=== PATIENT | female | born 1950 | race Caucasian/White ===

== ENCOUNTER 2023-05-25 08:55 | Outpatient (OUT) | payer MEDICARE, SELFPAY ==
--- NOTE | 2023-05-25 08:58 | XR_ITS ---
[address] [address] Patient Name: BECKY WALTER MRN: [id number] date: 1950 Sex: F Assigned [facility] Current Patient Location: Accession/Order Number: [id number] Exam Date: 05/25/2023 09:18 Report Date: 05/30/2023 07:02 At the request of: DWAYNE LOPEZ Procedure: XR DEXA axial skeleton EXAMINATION: XR DEXA axial skeleton, 05/25/2023 9:18 AM EDT HISTORY: Osteoporosis M81.0 COMPARISON: 2021, , , , TECHNIQUE: Dual-energy X-ray absorptiometry (DEXA) bone density study performed for the axial skeleton. HISTORY: Osteoporosis M81.0 FINDINGS: Bone mineral density AP spine L1-L4 measures 1.024 g/sq cm. T score -1.3. This is artifactually elevated secondary to degenerative spondylosis bone mineral density dual femur trochanters measuring 0.529 g/sq cm. 5.1% reduction, physiologic. T score -2.8. WHO classification: Osteoporosis XR/XR DEXA axial skeleton IMPRESSION: Osteoporosis. High fracture risk Electronically authenticated by: ED CEDENO Date: 05/30/2023 07:02
--- NOTE | 2023-05-25 08:58 | MM_ITS ---
Patient Name: BECKY WALTER MR#: [id number] : 1950 Exam Date: 05/25/2023 Ordering Doctor: DR Christy Rae M.D. RADIOLOGY REPORT PROCEDURE: MM TOMOSYNTHESIS SCREENING BI COMPARISON: MG MAMM SCREEN 3D TISH CAD, 03/30/2021. MG MAMM SCREEN 3D TISH CAD, 04/27/2022. INDICATIONS: Screening Calculator Name NCI Breast Cancer Risk Assessment Tool 5 Year Breast Cancer Risk 3.40% Lifetime Breast Cancer Risk 9.70% Personal Breast Cancer No Personal Ovarian Cancer No Treatments None Family Cancers Sister with breast cancer at age 55. LOCATION: [facility] BREAST COMPOSITION: The breasts are extremely dense, which lowers the sensitivity of mammography. FINDINGS: DIAGNOSTIC CATEGORY 1--NEGATIVE. NO CHANGE FROM COMPARISON ASSESSMENT. Scattered benign-appearing nodules are present. Scattered benign-appearing calcifications are present. Scattered benign-appearing lymph nodes are present. RIGHT BREAST: No significant suspicious finding. LEFT BREAST: No significant suspicious finding. RECOMMENDATIONS: ROUTINE MAMMOGRAM AND CLINICAL EVALUATION IN 12 MONTHS. PLEASE NOTE: A NORMAL MAMMOGRAM DOES NOT EXCLUDE THE POSSIBILITY OF BREAST CANCER. A CLINICALLY SUSPICIOUS PALPABLE LUMP SHOULD BE BIOPSIED. Dictated by: Vladimir Navas MD on 05/25/2023 at 09:44 Approved by: Vladimir Navas MD on 05/25/2023 at 09:45
[2023-05-25 11:05] LABS: Free T4 1.21 ng/dL (0.76-1.46)
[2023-05-25 11:15] LABS: Anion Gap 11.7; BUN Creatinine Ratio 16.2; Calcium 9.6 mg/dL (8.5-10.1); Carbon Dioxide 30.8 mmol/L (21.0-32.0); Chloride 101 mmol/L (98-107); Estimated GFR (African America >60 (>=60); Estimated GFR (Non-African Ame >60 (>=60); Glucose 70 mg/dL (74-106); Potassium 3.5 mmol/L (3.5-5.1); Sodium 140 mmol/L (136-145); Thyroid Stimulating Hormone 1.172 uIU/mL (0.358-3.740)
== END 2023-05-25 08:56 | disposition home or self-care (01) ==
LOC: MAMMO 08:55
PROVIDERS: PCP Family Medicine; Visit Provider Family Medicine
DX: E83.52 Hypercalcemia (principal); M81.0 Age-related osteoporosis without current pathological fracture; E03.9 Hypothyroidism, unspecified; Z12.31 Encounter for screening mammogram for malignant neoplasm of breast; Z80.3 Family history of malignant neoplasm of breast
CPT/HCPCS: 36415; 77063; 77067; 77080; 80048; 84439; 84443

== ENCOUNTER 2023-08-08 09:36 | Outpatient (OUT) | payer MEDICARE, SELFPAY ==
[2023-08-08 09:56] LABS: Basophils Absolute Auto 0.1 10^3/uL (0.0-0.1); Basophils Percent Auto 1.2 % (0.2-2.0); Eosinophils Absolute Auto 0.1 10^3/uL (0.0-0.7); Hematocrit 39.7 % (36.0-48.0); Hemoglobin 12.9 g/dL (12.0-16.0); Immature Granulocytes Abs Auto 0.01 10^3/uL (0.00-0.03); Immature Granulocytes Pct Auto 0.2 % (0.0-0.5); Lymphocytes Absolute Auto 1.5 10^3/uL (1.2-3.8); Lymphocytes Percent Auto 35.6 % (20.5-60.0); Mean Corpuscular HGB Conc 32.5 g/dL (29.9-35.2); Mean Corpuscular Hemoglobin 29.5 pg (26.7-34.0); Mean Corpuscular Volume 90.8 fL (81.0-99.0); Mean Platelet Volume 8.8 fL (9.5-13.5); Monocytes Absolute Auto 0.4 10^3/uL (0.3-0.8); Monocytes Percent Auto 8.8 % (1.7-12.0); Neutrophils Absolute Auto 2.2 10^3/uL (1.4-6.5); Neutrophils Percent Auto 51.2 % (43.0-75.0); Platelet Count 222 10^3/uL (150-450); Red Blood Count 4.37 10^6/uL (4.20-5.40); Red Cell Distribution Width 12.4 % (11.0-15.0); White Blood Count 4.3 10^3/uL (4.0-11.0)
[2023-08-09 13:08] LABS: PTH, Intact 33 pg/mL (15-65)
== END 2023-08-08 09:37 | disposition home or self-care (01) ==
LOC: LAB 09:37
PROVIDERS: PCP Family Medicine; Visit Provider Nurse Practitioner Family
DX: M81.0 Age-related osteoporosis without current pathological fracture (principal); E83.52 Hypercalcemia
CPT/HCPCS: 36415; 82306; 83970; 85025

== ENCOUNTER 2023-09-06 15:29 | Outpatient (OUT) | payer MEDICARE, SELFPAY ==
[2023-09-06 16:14] LABS: Calcium 9.5 mg/dL (8.5-10.1)
== END 2023-09-06 15:30 | disposition home or self-care (01) ==
LOC: LAB 15:32
PROVIDERS: PCP Family Medicine; Visit Provider Nurse Practitioner Family
DX: M81.0 Age-related osteoporosis without current pathological fracture (principal)
CPT/HCPCS: 36415; 82310

== ENCOUNTER 2023-09-30 07:29 | Outpatient (RCR) | payer MEDICARE, SELFPAY ==
[2023-09-30 13:17] VITALS: BP 108/71; PULSE 77; TEMP 36.6; O2SAT 98
[2023-09-30] MEDS: ROMOSOZUMAB-AQQG 210 MG/2.34 ML SYRINGE SQ (13:39)
--- NOTE | 2023-09-30 16:31 | PC.NURSE ---
1440 tolerated injection no s/s of reaction. educated on calcium and vit d requirements and medication,
== END 2023-10-08 23:59 | disposition home or self-care (01) ==
LOC: INF 07:29
PROVIDERS: PCP Family Medicine; Visit Provider Nurse Practitioner Family
DX: M81.0 Age-related osteoporosis without current pathological fracture (principal)
CPT/HCPCS: 96372; J3111

== ENCOUNTER 2023-11-03 07:43 | Outpatient (RCR) | payer MEDICARE, SELFPAY ==
[2023-11-03 13:05] VITALS: BP 113/61; PULSE 80; TEMP 36.7; O2SAT 98
[2023-11-03] MEDS: ROMOSOZUMAB-AQQG 210 MG/2.34 ML SYRINGE SQ (13:26)
--- NOTE | 2023-11-03 14:49 | PC.NURSE ---
1305: Pt. to [facility] amb. for monthly injection. Seated in recliner. VSS. Denies adverse reactions with previous Evenity administrations. Given bottled water. 1326: Medicated with Evenity as ordered, see documentation. No bleeding to sites x's 2 to left upper arm. Pt. tolerated without c/o. 1328: D/c'd amb. to home.
== END 2023-11-07 23:59 | disposition home or self-care (01) ==
LOC: INF 07:43
PROVIDERS: PCP Family Medicine; Visit Provider Nurse Practitioner Family
DX: M81.0 Age-related osteoporosis without current pathological fracture (principal)
CPT/HCPCS: 96372; J3111

== ENCOUNTER 2023-11-15 11:57 | Outpatient (OUT) | payer MEDICARE, SELFPAY ==
--- OUTSIDE RECORDS SUMMARY | 2023-11-15 12:09 | XMS_ITS | CCD ---
Author Organization [facility] Care Team Providers Care Ticketing Agent Name Role Phone Brandin Bah Unavailable Christy Lopez Unavailable BINDU MCQUEEN Admitting Unavailable BINDU MCQUEEN Attending Unavailable JOHN, DR CHRISTY Perla Primary Care Unavailable BINDU MCQUEEN Consulting Unavailable JOHN, DR CHRISTY Perla Admitting Unavailable JOHN, DR CHRISTY Perla Attending Unavailable JOHN, DR CHRISTY Perla Primary Care Unavailable MARCUS, DR EULALIO Graves Consulting Unavailable JOHN, DR CHRISTY Perla Consulting Unavailable BINDU MCQUEEN Admitting Unavailable BINDU MCQUEEN Attending Unavailable JOHN, DR CHRISTY Perla Primary Care Unavailable BINDU MCQUEEN Consulting Unavailable DESMOND Evans Attending Provider Ludy Evans Attending Unavailable Ludy Evans Admitting Unavailable NO FAMILY, PHYSICIAN Primary Care Unavailable Ludy Evans Unavailable Sapphire Ortez Unavailable [phone] Allergies Allergy Classification Reported Allergen(s) Allergy Type Date of Onset Reaction(s) Facility (10 sources) Seasonal allergy Propensity to adverse reactions 4 Unknown, Unknown Reaction [facility] (10 sources) Cat dander Propensity to adverse reactions 4 Unknown, Unknown Reaction [facility] (2 sources) Allergies Reconciled Propensity to adverse reactions Unknown [facility] Other (2 sources) patient allergy list reviewed by nurse or physicia Propensity to adverse reactions 6 Comment:Done [facility] Other Medications Current Medications Medication Drug Class(es) Dates Sig (Normalized) Sig (Original) azithromycin 250 mg oral tablet (8 sources) Macrolide Antimicrobial Start: 06-02-2023 Azithromycin Active 250 MG PO daily 6 5 June 02, 2023 12:00am Take 2 the first day and then 1 for the next 4 days Start: 03-16-2023 Azithromycin 2 50 MG 2 tablet on the first day, then 1 tablet daily for 4 days Orally Once a day for 5 day(s) Mar, Active Start: 03-25-2022 Azithromycin 2 50 MG as directed Orally 2 tabs po today, then 1 tab daily x 4 more days for 5 Mar, Not-Taking/PRN benzonatate 200 mg oral capsule (6 sources) Non-narcotic Antitussive Start: 03-16-2023 take 1 capsule by mouth every eight hours Benzonatate 200 MG 1 capsule as needed Orally Three times a day for 10 days Mar, Active Start: 03-25-2022 take 1 capsule by mo ut every eight hours Benzonatate 200 MG 1 capsule Orally Three times a day for 10 day(s) Mar, Not-Taking/PRN calcium carbonate 420 mg chewable tablet (2 sources) Start: 08-04-2023 Calcium Carbon ate (Alcalak) 168 mg calcium (420 mg) tablet,chewable Active 250 MG PO Daily August 04, 2023 3:04pm Start: 08-04-2023 End: 08-04-2023 take 1 tablet by mouth three times daily Calcium Carbonate (Alcalak) 168 mg calcium (420 mg) tablet,chewable Discontinued 168 MG PO Three times daily August 04, 2023 12:00am August 04, 2023 3:04pm cholecalciferol 0.01 mg chewable tablet (1 source) Vitamin D Start: 08-04-2023 take 1 tablet by mouth once daily Cholecalciferol (Vitamin D3) (Vitamin D3) 10 mcg (400 unit) tablet,chewable Active 10 MCG PO Daily August 04, 2023 12:00am fluconazole 150 mg oral tablet (1 source) Azole Antifungal Start: 01-29-2023 Diflucan 150 MG 1 tablet Orally once for 2 days Take 1 tablet by mouth at the onset of any symptoms of vaginal yeast infection. Take the second tablet 3 days later. Jan, Active hydroCHLOROthiazide 25 mg oral tablet (3 sources) Thiazide Diuretic Start: 05-11-2023 take 25 mg by mouth once daily Hydrochlorothiazide Active 25 MG PO Daily May 11, 2023 12:00am hydroCHLOROthiazide 50 mg / triamterene 75 mg oral tablet (13 sources) Potassium-spar ing Diuretic, Thiazide Diuretic Start: 06-07-2023 Triamterene-Hydrochloro thiazid Active 0 .ROUTE .COMPLEX 90 June 07, 2023 12:20pm TAKE 1 TABLET DAILY Start: 06-06-2023 End: 06-07-2023 take 1 tablet by mouth once daily Triamterene-Hydrochlorothiazid Discontin ued 1 TAB PO Daily June 06, 2023 12:00am June 07, 2023 12:20pm Start: 03-08-2018 End: 05-10-2023 take 1 tablet by mouth once daily Triamterene-Hydrochlorothiazid Discontin ued 1 TAB PO Daily March 08, 2018 1:00am May 10, 2023 9:24am ibandronic acid 150 mg oral tablet (13 sources) Bisphosphonate Start: 08-04-2023 take 150 mg by mouth every month Ibandronate Active 150 MG PO every month August 04, 2023 12:00am Start: 05-20-2023 Ibandronate Ac tive 0 .ROUTE .COMPLEX 3 May 20, 2023 8:56am TAKE 1 TABLET MONTHLY Start: 05-10-2023 End: 05-20-2023 take 150 mg by mouth every month Ibandronate Discontinued 150 MG PO every month May 10, 2023 12:00am May 20, 2023 8:56am Ibandronate Sodi um 150 mg TAKE 1 TABLET MONTHLY Active levothyroxine sodium 0.05 mg oral tablet (14 sources) l-Thyroxine Start: 03-08-2018 End: 05-10-2023 Levothyroxine Active 50 MCG PO May 10, 2023 12:00am TAKE ONE AND ONE-FOURTH TABLET DAILY Levothyroxine So dium 50 MCG TAKE ONE AND ONE-FOURTH TABLET DAILY Active nitrofurantoin, macrocrystals 25 mg / nitrofurantoin, monohydrate 75 mg oral capsule (1 source) Nitrofuran Antibacterial Start: 01-29-2023 take 1 capsule by mouth every twelve hours Macrobid 100 MG 1 cap(s) Orally bid for 5 day(s) Jan, Active phenazopyridine hydrochloride 200 mg oral tablet (1 source) Start: 01-29-2023 take 1 tablet by mouth every eight hours Pyridium 200 MG 1 tablet after meals Orally Three times a day for 2 day(s) Jan, Active microencapsulated potassium chloride 20 meq extended release oral tablet (14 sources) Start: 05-10-2023 take 2 tablets by mouth once daily in the morning, then take 1 tablet by mouth once daily in the evening Potassium Chloride Active 40 MEQ PO Twice daily May 10, 2023 12:00am TAKE 2 TABLETS EVERY MORNING AND 1 TABLET EVERY EVENING Start: 03-08-2018 End: 05-10-2023 Potassium Chloride (Klor-Con M20) 20 mEq tablet,ER particles/crystals Discontinued 20 MEQ PO Daily March 08, 2018 1:00am May 10, 2023 9:24am Klor-Con M20 20 MEQ TAKE 2 TABLETS EVERY MORNING AND 1 TABLET EVERY EVENING Active take 1 tablet by inez th every twenty-four hours Completed/Discontinued Medications Medication Drug Class(es) Dates Sig (Normalized) Sig (Original) Calcium (7 sources) Phosphate Binder, Calcium Calcium + D Not-Taking/PRN Calcium + D Acti ve fexofenadine hydrochloride 60 mg oral tablet (11 sources) Histamine-1 Receptor Antagonist Start: 03-08-2018 End: 05-10-2023 take 1 tablet by mouth twice daily Fexofenadine (Francisca Allergy) 60 mg Tablet Discontinued 60 MG PO Twice daily March 08, 2018 1:00am May 10, 2023 9:24am methylPREDNISolone (7 sources) Corticosteroid Start: 12-05-2017 Depo-Medrol 40 mg Nov, 1 mL Multivitamin (Multiple Vitamins) Tablet (4 sources) Start: 03-08-2018 End: 05-10-2023 take 1 tablet by mouth once daily Multivitamin (Multiple Vitamins) Tablet Discontinued 1 TAB PO Daily March 08, 2018 1:00am May 10, 2023 9:24am Start: 03-08-2018 take 1 tablet by inez th once daily Multivitamin (Multiple Vitamins) Tablet Active 1 TAB PO Daily March 08, 2018 12:00am Multivitamin Adult - (7 sources) Multivitamin Casimiro lt - as directed Orally Not-Taking/PRN Multivitamin Casimiro lt - as directed Orally Active naproxen sodium 220 mg oral tablet (11 sources) Nonsteroidal Anti-inflammatory Drug Start: 03-08-2018 End: 05-10-2023 take 1 tablet by mouth every twelve hours Naproxen Sodium (Aleve) 220 mg Tablet Discontinued 220 MG PO Q12H March 08, 2018 1:00am May 10, 2023 9:24am [place] 3 Fish Oil (7 sources) [place] 3 Fish Oil one oral daily Not-Taking/PRN [place] 3 Fish Oil one oral daily Active [place] 0-Ems-Cfa-Fish Oil (4 sources) Start: 03-08-2018 End: 05-10-2023 take 1 capsule by mouth once daily [place] 6-Egt-Tpp-Fish Oil Discontinued 1 CAP PO Daily March 08, 2018 1:00am May 10, 2023 9:24am Start: 03-08-2018 take 1 capsule by mo [facility] once daily [place] 7-Oem-Omq-Fish Oil Active 1 CAP PO Daily March 08, 2018 12:00am Problems Active Problems Problem Classification Problem Date Documented Da te Episodic/Chronic Cataract (8 sources) Age-related nuclear cataract, right eye; Translations: [Age-related nuclear cataract, left eye] Onset: 05-14-2021 Chronic Essential hypertension (5 sources) Essential (primary) hypertension; Translations: [Benign essential hypertension] Onset: 06-06-2017 Chronic Osteoarthritis (7 sources) Osteoarthritis of right knee joint; Translations: [Unilateral primary osteoarthritis, right knee] Chronic Osteoporosis (17 sources) Postmenopausal osteopenia; Translations: [Age-related osteoporosis without current pathological fracture] 05-11-2023 Chronic Other bone disease and musculoskeletal deformities (6 sources) Osteopenia; Translations: [Other specified disorders of bone density and structure, unspecified site] Episodic Other bone disease and musculoskeletal deformities (4 sources) Bone density finding; Translations: [Other specified disorders of bone density and structure, unspecified site] Episodic Other connective tissue disease (7 sources) Pain in left lower limb; Translations: [Pain in left leg] Episodic Other endocrine disorders (7 sources) Disorder of parathyroid gland; Translations: [Disorder of parathyroid gland, unspecified] Chronic Other endocrine disorders (2 sources) Disorder of parathyroid gland, unspecified; Translations: [DISORDER PARATHYROID GLAND UNS] Onset: 05-01-2022 Chronic Other infections; including parasitic (1 source) Personal history of other infectious and parasitic diseases Episodic Other nervous system disorders (10 sources) Chronic pain; Translations: [Other chronic pain] 05-11-2023 Chronic Other nervous system disorders (1 source) Other chronic pain Onset: 06-24-2021 Resolved: 06-24-2021 Chronic Other non-traumatic joint disorders (7 sources) Pain in right hip joint; Translations: [Pain in right hip] Episodic Other non-traumatic joint disorders (7 sources) Anterior knee pain; Translations: [Pain in right knee] Episodic Other nutritional; endocrine; and metabolic disorders (9 sources) Hypercalcemia; Translations: [Hypercalcemia] 05-11-2023 Chronic Other nutritional; endocrine; and metabolic disorders (7 sources) Hypercalcemia; Translations: [Hypercalcemia] Onset: 04-27-2022 Chronic Other nutritional; endocrine; and metabolic disorders (7 sources) H/O: metabolic disorder; Translations: [Personal history of other endocrine, nutritional and metabolic disease] Episodic Other screening for suspected conditions (not mental disorders or infectious disease) (8 sources) Encounter for screening mammogram for malignant neoplasm of breast; Translations: [Patient encounter status] Onset: 05-01-2022 Episodic Other upper respiratory infections (8 sources) Chronic sinusitis; Translations: [Chronic sinusitis, unspecified] 06-02-2023 Chronic Other upper respiratory infections (10 sources) Acute maxillary sinusitis, unspecified; Translations: [Acute pharyngitis] Onset: 07-09-2014 Episodic Residual codes; unclassified (1 source) Family history of malignant neoplasm of breast; Translations: [FAMILY HX MALIG NEOPLASM OF BREAST] Onset: 05-01-2022 Episodic Spondylosis; intervertebral disc disorders; other back problems (20 sources) Degeneration of lumbar intervertebral disc; Translations: [Other intervertebral disc degeneration, lumbar region] Onset: 06-24-2021 Resolved: 06-24-2021 Chronic Spondylosis; intervertebral disc disorders; other back problems (12 sources) Lumbar radiculopathy; Translations: [Radiculopathy, lumbar region] Onset: 07-17-2013 Resolved: 06-24-2021 Episodic Sprains and strains (14 sources) Strain of muscle and/or tendon of thigh; Translations: [Strain of muscle, fascia and tendon of the posterior muscle group at thigh level, left thigh, subsequent encounter] Episodic Thyroid disorders (18 sources) Hypothyroidism; Translations: [Hypothyroidism, unspecified] Onset: 05-01-2022 Chronic Urinary tract infections (1 source) Acute cystitis without hematuria Episodic Past or Other Problems Problem Classification Problem Date Documented Da te Episodic/Chronic Acute bronchitis (4 sources) Acute bronchitis; Translations: [Acute bronchitis, unspecified] Onset: 03-18-2016 Episodic Genitourinary symptoms and ill-defined conditions (3 sources) Dysuria; Translations: [Dysuria] Onset: 07-10-2018 Episodic Nonspecific chest pain (4 sources) Chest pain; Translations: [Chest pain, unspecified] Onset: 06-06-2017 Episodic Other connective tissue disease (4 sources) Pain in limb; Translations: [Pain in soft tissues of limb] Onset: 09-09-2017 Episodic Other injuries and conditions due to external causes (4 sources) Traumatic AND/OR non-traumatic injury; Translations: [Other injury of unspecified body region, initial encounter] Onset: 08-16-2014 Episodic Other skin disorders (4 sources) Disorder of skin and/or subcutaneous tissue; Translations: [Disorder of the skin and subcutaneous tissue, unspecified] Onset: 11-14-2015 Episodic Results Test Name Value Interpretation Reference Range Facility Estimated glomerular filtrat ion rate (GFR) non- Americanon 05-25-2023 GFR/1.73 sq M.predicted among non-blacks MDRD (S/P/Bld) [Vol rate/Area] mL/min/{1.73_m2} >=60 [facility] Glucose mean value [Mass/vol ume] in Blood Estimated from glycated hemoglobinon 05-25-2023 Average glucose Estimated from glycated hemoglobin (Bld) [Mass/Vol] 117 mg/dL [facility] Laboratory - Chemistry and C hemistry - challengeon 05-25-2023 Calcium [Mass/Vol] 9.6 mg/dL 8.5-10.1 [facility] Chloride [Moles/Vol] 101 mmol/L 98-107 [facility] CO2 [Moles/Vol] 30.8 mmol/L 21.0-32.0 [facility] Creatinine [Mass/Vol] 0.80 mg/dL 0.55-1.02 [facility] Free T4 [Mass/Vol] 1.21 ng/dL 0.76-1.46 [facility] GFR/1.73 sq M.predicted MDRD (S/P/Bld) [Vol rate/Area] mL/min/{1.73_m2} >=60 [facility] Glucose [Mass/Vol] 70 mg/dL Low 74-106 [facility] Potassium [Moles/Vol] 3.5 mmol/L 3.5-5.1 [facility] Sodium [Moles/Vol] 140 mmol/L 136-145 [facility] TSH Qn 1.172 m[IU]/L 0.358-3.740 [facility] Urea nitrogen [Mass/Vol] 13.0 mg/dL 7.0-18.0 [facility] Urea nitrogen/Creatinine [Mass ratio] 16.2 mg/mg [facility] - Hematology and Cell countson 05-25-2023 HbA1c (Bld) [Mass fraction] 5.7 % 4.5-6.2 [facility] Comment on above: ADA RECOMMENDED LIMI T 4.0 - 6.0ADA THERAPEUTIC TARGET < 7.0ACTION SUGGESTED> 7.0 Serum or plasma anion gap de terminationon 05-25-2023 Anion gap [Moles/Vol] 11.7 mmol/L [facility] Urinalysis - AUTOMATEDon Appearance (U) cloudy [facility] Other Bilirubin Ql (U) Negative [place] Other Color (U) pale yellow [facility] Other Glucose Ql (U) Negative [facility] Other Hemoglobin Ql (U) trace-intact [facility] Other Ketones Ql (U) Negative [facility] Other Leukocyte esterase Test strip Ql (U) small [facility] Other Nitrite Ql (U) Negative [facility] Other pH (U) 7.0 [pH] [facility] Other Protein Ql (U) Negative [facility] Other Specific gravity (U) [Rel density] 1.020 [facility] Other Urobilinogen (U) [Mass/Vol] 0.2 mg/dL [facility] Other Urinalysis - AUTOMATED [facility] Other Urine Cultureon 01-29-2023 Urine Culture >100,000 [facility] Other Urine Culture <1 Susceptible [facility] Other Urine Culture <32 Susceptible [facility] Other Urine Culture <4 Susceptible [facility] Other Urine Culture <0.5/9.5 Susceptible [facility] Other Bacteria identified Cx Nom (U) Reason for Exam Dysuria Urine ORGANISM: Staphylococcus epidermidis (O:STAEPI) [place] Count >100,000 Aerobic DAJA Charge (PCMIC38) ------ SUSCEPTIBILITY ----- ORGANISM: O:STAEPI ANTIBIOTIC INTERPRETATION DAJA Ciprofloxacin S <1 Daptomycin S <0.5 Levofloxacin S <1 Linezolid S <1 Nitrofurantoin S <32 Oxacillin R >2 Penicillin R >2 Tetracycline S <4 Trimethoprim/Sulfam ethoxazole S <0.5 Vancomycin S 1 S = SUSCEPTIBLE I = INTERMEDIATE R = RESISTANT BLANK = DATA NOT AVAILABLE, OR DRUG NOT ADVISABLE OR TESTED R* = RESISTANCE DUE TO EXTENDED SPECTRUM BETA-LACTAMASES ESBL = EXTENDED SPECTRUM BETA-LACTAMASE TFG = THYMIDINE-DEPENDENT STRAIN ENDER = BETA-LACTAMASE POSITIVE IB = INDUCIBLE BETA-LACTAMASE. APPEARS IN PLACE OF 'S' WITH SPECIES KNOWN TO POSSESS INDUCIBLE BETA-LACTAMASES. POTENTIALLY THEY MAY BECOME RESISTANT TO ALL B-LACTAM DRUGS. PERFORMED BY: [address] [place] [address] PATHOLOGIST LOFT WORKER HEAD ADELSO KAPADIA M.D. [facility] Comment on above: Performed By: #### C UU #### [facility] [address] [id number] [facility] PTH INTACTon 04-28-2022 PTH, Intact 31 pg/mL Normal 15-65 [facility] Comment on above: Performed By: #### P THINT #### [facility] [address] [address] [address] Breana Kong CALCIUMon 04-27-2022 Calcium [Mass/Vol] 9.4 mg/dL Normal 8.5-10.1 [facility] Comment on above: Performed By: #### T SH, CA #### [facility] [address] [place] [address] Dr. Breana Kong FREE T4on 04-27-2022 Free T4 [Mass/Vol] 1.14 ng/dL Normal 0.76-1.46 [facility] Comment on above: Performed By: #### F T4 #### [facility] [address] [place] [address] Dr. Breana Kong MG MAMM SCREEN 3D TISH CADon 04-27-2022 MG MAMM SCREEN 3D TISH CAD Patient: ANA M WALTER Exam Date: 04/27/2022 : 1950 Gender:F Ordering : DR CHRISTY LOPEZ M.D. Admission #: [id number] Family : Order #: [id number] CLICK HERE TO VIEW EXAM RADIOLOGY REPORT PROCEDURE: MAMMOGRAM SCREENING 3D BILATERAL CAD COMPARISON: MG MAMM SCREEN 3D TISH CAD, 03/30/2021. MG MAMM SCREEN TISH W CAD, 01/23/2019. MG MAMM SCREEN TISH W CAD, 02/24/2017. DIGITIZED_MAMMO, 05/20/2008. INDICATIONS: Screening mammography Calculator Name NCI Breast Cancer Risk Assessment Tool 5 Year Breast Cancer Risk 3.40% Lifetime Breast Cancer Risk 10.20% Personal Breast Cancer No Personal Ovarian Cancer No Treatments None Family Cancers Sister with breast cancer at age 55. LOCATION: [facility] BREAST COMPOSITION: Extremely dense, which lowers the sensitivity of mammography. FINDINGS: DIAGNOSTIC CATEGORY 1--NEGATIVE. RIGHT BREAST: No significant suspicious finding. No significant change has occurred. LEFT BREAST: No significant suspicious finding. No significant change has occurred. RECOMMENDATIONS: ROUTINE MAMMOGRAM AND CLINICAL EVALUATION IN 12 MONTHS. PLEASE NOTE: A NORMAL MAMMOGRAM DOES NOT EXCLUDE THE POSSIBILITY OF BREAST CANCER. A CLINICALLY SUSPICIOUS PALPABLE LUMP SHOULD BE BIOPSIED. Dictated by: Eulalio Nam M.D. on 04/27/2022 at 15:46 Approved by: Eulalio Nam M.D. on 04/27/2022 at 16:02 Normal [facility] TSHon 04-27-2022 TSH 0.435 uIU/mL Normal 0.358-3.740 [facility] Comment on above: Performed By: #### T , OR #### [facility] [address] [place] [address] Dr. Breana Kong Vital Signs Date Time Vital Sign Value Performing Clinician Facility 06-02-2023 10:29-0400 Body height 166.37 cm [facility] 06-02-2023 10:29-0400 Body mass index (BMI) [Ratio] 18 kg/m2 [facility] 06-02-2023 10:29-0400 Body weight 49.89 kg [facility] 06-02-2023 10:29-0400 Diastolic blood pressure 64 mm[Hg] [facility] 06-02-2023 10:29-0400 Heart rate 97 /min [facility] 06-02-2023 10:29-0400 SaO2% (BldA) [Mass fraction] 100 % [facility] 06-02-2023 10:29-0400 Systolic blood pressure 108 mm[Hg] [facility] 05-11-2023 10:00-0400 Body height 166.37 cm [facility] 05-11-2023 10:00-0400 Body mass index (BMI) [Ratio] 17.9 kg/m2 [facility] 05-11-2023 10:00-0400 Body weight 49.49 kg [facility] 05-11-2023 10:00-0400 Diastolic blood pressure 60 mm[Hg] [facility] 05-11-2023 10:00-0400 Heart rate 89 /min [facility] 05-11-2023 10:00-0400 Systolic blood pressure 102 mm[Hg] [facility] 03-16-2023 13:00-0500 Body height Sapphire Neelima Other [facility] Other 03-16-2023 13:00-0500 Body mass index (BMI) [Ratio] 18.68 kg/m2 Sapphire Ortez Other [facility] Other 03-16-2023 13:00-0500 Body temperature 97.4 [degF] Sapphire Neelima Other [facility] Other 03-16-2023 13:00-0500 Body weight 51.71 kg Sapphire Ortez Other [facility] Other 03-16-2023 13:00-0500 Diastolic blood pressure 64 mm[Hg] Sapphire Ortez Other [facility] Other 03-16-2023 13:00-0500 SaO2% (BldA) [Mass fraction] 100 % Sapphire Ortez Other [facility] Other 03-16-2023 13:00-0500 Systolic blood pressure 112 mm[Hg] Sapphire Ortez Other [facility] Other 01-29-2023 10:50-0500 Body height Ludy Evans Other [facility] Other 01-29-2023 10:50-0500 Body mass index (BMI) [Ratio] 18.35 kg/m2 Ludy Evans Other [facility] Other 01-29-2023 10:50-0500 Body temperature 98 [degF] Ludy Evans Other [facility] Other 01-29-2023 10:50-0500 Body weight 50.8 kg Ludy Evans Other [facility] Other 01-29-2023 10:50-0500 Diastolic blood pressure 56 mm[Hg] Ludy Evans Other [facility] Other 01-29-2023 10:50-0500 Respiratory rate 18 /min Ludy Evans Other [facility] Other 01-29-2023 10:50-0500 SaO2% (BldA) [Mass fraction] 97 % Ludy Evans Other [facility] Other 01-29-2023 10:50-0500 Systolic blood pressure 110 mm[Hg] Ludy Evans Other [facility] Other 06-24-2021 16:15-0400 Body height Brandin Bah Other [facility] Other 06-24-2021 16:15-0400 Body mass index (BMI) [Ratio] 18.19 kg/m2 Brandin Bah Other [facility] Other 06-24-2021 16:15-0400 Body weight 50.35 kg Brandin Bah Other [facility] Other 06-24-2021 16:15-0400 Diastolic blood pressure 60 mm[Hg] Brandin Olvin Other [facility] Other 06-24-2021 16:15-0400 Systolic blood pressure 116 mm[Hg] Brandin Bah Other [facility] Other Encounters Encounter Date Encounter Type Care Provider Facility Start: 08-04-2023 End: 08-04-2023 ambulatory [facility] Work Phone: Start: 08-04-2023 End: 08-04-2023 Patient encounter procedure [facility] Work Phone: Start: 06-06-2023 Non-patient / Non-visit [facility] Work Phone: Start: 06-02-2023 End: 06-02-2023 ambulatory [facility] Work Phone: Start: 06-02-2023 End: 06-02-2023 Patient encounter procedure [facility] Work Phone: Start: 05-25-2023 Non-patient / Non-visit [facility] Work Phone: Start: 05-11-2023 End: 05-11-2023 ambulatory [facility] Work Phone: Start: 05-11-2023 End: 05-11-2023 Patient encounter procedure [facility] Work Phone: Start: 03-16-2023 End: 03-16-2023 ambulatory Sapphire Ortez Other [facility] Other Start: 03-16-2023 Encounter by corry Ortez [facility] Start: 03-16-2023 Office outpatient vi sit 15 minutes Sapphire Ortez [facility] Start: 01-29-2023 Office outpatient vi sit 15 minutes Ludy Evans [facility] Start: 01-29-2023 End: 01-29-2023 ambulatory Ludy Cristina Facility:[facility] Start: 01-29-2023 End: 01-29-2023 ambulatory [employer] [facility] Ludy Evans Work Phone: [facility] Work Phone: Start: 01-29-2023 End: 01-29-2023 Departed Referred [facility] [facility] Ludy Evans Work Phone: [facility] [place] Work Phone: Start: 12-06-2022 End: 12-06-2022 ambulatory Christy Lopez Other [facility] Other Start: 12-06-2022 Telephone encounter Christy IRIZARRY [facility] Start: 04-28-2022 End: 04-28-2022 ambulatory Christy Lopez Other [facility] Other Start: 04-28-2022 Telephone encounter Christy Lopez [facility] Start: 04-27-2022 End: 04-28-[address] CHRISTY LOPEZ Facility:[facility] Start: 03-25-2022 (Televisit) Televisit Christy Lopez [facility] [facility] Start: 03-25-2022 End: 03-25-2022 ambulatory Christy Lopez Other [facility] Other Start: 06-24-2021 End: 06-24-2021 ambulatory Brandin Bah Other [facility] Other Start: 06-24-2021 Office outpatient ne w 45 minutes Brandin Bah [facility] Start: 06-11-2021 End: 06-11-2021 ambulatory BINDU MCQUEEN Facility:[facility] Start: 05-14-2021 End: 05-14-2021 ambulatory BINDU MCQUEEN Facility:[facility] Start: 01-29-2021 Adult health examination Christy Lopez Other [facility] Other Procedures Date Procedure Procedure Detail Performing Clinician Screening for malign ant neoplasm of breast Christy Lopez Other Viral screening Christy Lopez Other Plan of Treatment Date Care Activity Detail Author Start: 01-29-2023 Bacteria identified in Urine by Culture [facility] DXA Skeletal system. axial Views for bone density [facility] MG Breast - bilateral Screening [facility] Immunizations Immunization Date Immunization Notes Care Provider Fa cility 11-11-2021 influenza virus vaccine, split virus (incl. purified surface antigen) Christy Lopez Other [employer] [facility] [email or web address] Other 11-11-2021 influenza virus vaccine, unspecified formulation [facility] 08-31-2021 COVID-19 Vaccine Pfizer - Documentation Purposes Only Christy Lopez Other [facility] 12-09-2020 COVID-19 Vaccine Pfizer - Documentation Purposes Only Christy Lpoez Other [facility] 11-12-2020 influenza virus vaccine, split virus (incl. purified surface antigen) Christy Lopez Other [employer] [facility] [email or web address] Other 11-12-2020 influenza virus vaccine, unspecified formulation [facility] 11-26-2019 influenza virus vaccine, split virus (incl. purified surface antigen) Christy Lopez Other [facility] [email or web address] Other 11-26-2019 influenza virus vaccine, unspecified formulation [facility] 04-11-2017 tetanus and diphtheria toxoids, adsorbed, preservative free, for adult use (5 Lf of tetanus toxoid and 2 Lf of diphtheria toxoid) Christy Lopez Other [facility] 01-19-2017 tetanus and diphtheria toxoids, adsorbed, preservative free, for adult use (5 Lf of tetanus toxoid and 2 Lf of diphtheria toxoid) Christy Lopez Other [facility] 12-30-2015 tetanus and diphtheria toxoids, adsorbed, preservative free, for adult use (5 Lf of tetanus toxoid and 2 Lf of diphtheria toxoid) Christy Lopez Other [facility] NEGATED: Highlighted row has not occurred!08-27-2015 influenza virus vaccine, unspecified formulation [facility] NEGATED: Highlighted row has not occurred!08-27-2015 influenza, injectable,quadriva lent, preservative free, pediatric Patient Objection Brandin Bah Other [facility] Other Payers Date Payer Category Payer Self-pay [id number] 1957 Medicare [id number]. [id number] 1950 Unknown [id number] 1950 Unknown [id number] 1950 Unknown [id number] Unknown [id number] Social History Date Type Detail Facility Unknown if ever smoked [facility] Other Sex Assigned At Sex Assigned At Bir th [facility] Other Start: 1950 Sex Assigned At Female F [facility] Start: 05-04-2023 Tobacco smoking status NHIS Never smoked tobacco (finding) [facility] Clinical Notes 05-14-2021 to 03-16-2023 Note Date & Type Note Facility 03-16-2023 Evaluation note Encounter Date Diagnosis Assessment Notes Mar, Acute non-recurren t maxillary sinusitis (ICD-10 - J01.00) Sinus infections can be triggered by a secondary infection from a viral URI or even seasonal allergies. Take medications as directed. Use saline nasal spray prior to presciption nasal spray. Take medications as directed, and complete all doses of medication even if you start to feel better. Patient advised to follow up with PCP if symptoms persist or worsen. Patient verbalized understanding and agreement with treatment plan. [facility] Other 12-23-2023 Evaluation note* Encounter Date Diagnosis Assessment Notes Treatment Notes Treatment Clinical Notes Jan, Acute cystitis without hematuria (ICD-10 - N30.00) Drink plenty fluids, get plenty of rest. Take the Macrobid and Pyridium as prescribed until gone. Take the Diflucan as prescribed at any onset of vaginal yeast infection. Take Tylenol or Motrin for aches pains or fevers. Follow-up with your family physician if no improvement in 2 to 3 days Jan, History of candidiasis of vagina (ICD-10 - Z86.19) Jul, Dysuria (ICD-10 - R30.0) [facility] Other 02-16-2023 Evaluation note* Encounter Date Diagnosis Assessment Notes Treatment Notes Treatment Clinical Notes Mar, Acute non-recurrent maxillary sinusitis (ICD-10 - J01.00) Sinus infections can be triggered by a secondary infection from a viral URI or even seasonal allergies. Take medications as directed. Use saline nasal spray prior to presciption nasal spray. Take medications as directed, and complete all doses of medication even if you start to feel better. Mar, Screening mammogram for breast cancer (ICD-10 - Z12.31) test ordered Mar, Hypothyroidism (acquired) (ICD-10 - E03.9) chronic - >1 yr since last lab Mar, Hypercalcemia (ICD-1 0 - E83.52) recheck lab Mar, Parathyroid abnormality (ICD-10 - E21.5) assess PTH due to history of elevated calcium [facility] Other 05-18-2022 Evaluation note* Encounter Date Diagnosis Assessment Notes Treatment Notes Treatment Clinical Notes June, Lumbar radiculopathy (ICD-10 - M54.16) 71 year old female here with complaints of right sided low back pain with radiation to the posterior aspect of the right lower extremity to the foot. She was last seen in this office in 2019, and feels pain is similiar to the pain she felt back then. She denies recent physical therapy, but does note a home exercise program as well as biking. She also notes trying Aleve with no relief of her symptoms. She feels pain is negatively impacting her ADL's and sleep pattern. Anatomy of spine discussed in detail with patient in regards to patients condition. I will order updated imaging of the lumbar spine to further evaluate her pain. In the meantime, I recommend we proceed with a L4,5 transforaminal epidural steroid injection on the right side under fluoroscopic guidance. Risks and benefits of procedure explained to patient; patient verbalizes understanding. June, Sacroiliitis (ICD-10 - M46.1) In the future if the pain persists, we can consider proceeding with a right sacroiliac joint injection under fluoroscopic guidance. June, Lumbosacral spondylosis (ICD-10 - M47.817) In the future if the pain persists, we can consider proceeding with a right lumbar facet medial branch nerve block followed by a RFA if applicable under fluoroscopic guidance. June, Chronic pain (ICD-10 - G89.29) Continue with current treatment plan June, Other Medical deci timothy making shows a new problem to me with further workup planned or suggested with the potential for extensive treatment options that were considered with the most applicable given this patient's situation as noted above. Treatment options considered include a combination of physical therapy approaches, pharmacologic management, and interventional procedures. Those most applicable to the patient were discussed at this time. Risk of complications and/or morbidity and mortality is high given that acute and chronic pain poses a threat to life and bodily function if undertreated, poorly treated or with failure to maintain adequate treatment and timely followup. Given the serious and fluctuating nature of pain with extensive consideration for whenever pain changes, there always remains the possibility of prolonged functional impairment requiring constant patient reassessment and high-level medical decision making. The amount and complexity of data reviewed is high given that patient labs, radiology reports, and other test were obtained, reviewed and summarized as applicable from the physician portal and/or outside medical records. Pertinent positive and negative findings were considered in medical decision-making. [facility] Other [id number] NoteOPERATIVE NOTE OPERATION DATE: 06/11/2021 SURGEON: Bindu Mcqueen M.D. PREOPERATIVE DIAGNOSIS: Nuclear sclerotic cataract right eye. POSTOPERATIVE DIAGNOSIS: Nuclear sclerotic cataract right eye. PROCEDURE NAME: Cataract extraction with intraocular lens placement for the right eye. ANESTHESIA: Topical. ESTIMATED BLOOD LOSS: Zero. COMPLICATIONS: None. PROCEDURE: The patient was brought to the Operating Room in supine position. After proper identification, the right eye was prepped and draped in a sterile ophthalmic fashion. A paracentesis created at the 11 o'clock position. Approximately 1 mL of unpreserved Xylocaine was injected into the anterior chamber followed by Amvisc Plus. Using a 2.6 mm Keratome blade, a clear corneal incision was created at the 9 o'clock limbus. A cystotome was then used to begin a curvilinear capsulorrhexis that was continued for 360 degrees with the Utrata forceps. BSS on a 26 gauge cannula was injected beneath the anterior capsule to hydrodissect as well as hydrodelineate the lens. After ensuring mobility, phacoemulsification was performed in a [id number]-type fashion. After all nuclear material had been removed from the eye, IA was introduced and all residual cortical material was cleaned up. Additional Amvisc Plus was injected into the posterior bag and a lens model MX60, 19.0 diopters was injected and dialed into position. After ensuring centration, IA was reintroduced into the anterior chamber and all residual Amvisc Plus removed from the eye. BSS on a 30 gauge cannula was injected into the stroma of both the clear corneal incision as well as paracentesis to hydrate the wounds. Additional BSS was injected into the anterior chamber to pressurize the eye at approximately 20 to 22 mmHg by finger tension. 0.1 mL of antibiotic was injected into the anterior chamber. Weck-Adriana sponges were used to check the wounds to be watertight. One drop of apraclonidine and one drop of prednisolone acetate were placed into the eye and a shield was placed over top. The patient was sent to the postoperative area in satisfactory condition to follow up the following day for postoperative care. PSYCHIATRIC Signed and Approved by: BINDU MCQUEEN 07/10/2021 15:27:00[facility]05-05-2022 NoteHISTORY AND PHYSICAL EXAMINATION HISTORY: Patient is a 70-year-old white female with complaints of declining vision out of her right eye. She believes that this has been gradually worsening over the last year in a progressive fashion. She has difficulty seeing the computer screen for acts such [employer]. She has had difficulty seeing crossword puzzle clues, and night time driving has become more difficult because of headlights creating glare and halos. PAST OCULAR HISTORY / PAST MEDICAL HISTORY /SOCIAL HISTORY / MEDICATIONS / ALLERGIES TO MEDICATIONS / REVIEW OF SYSTEMS / PHYSICAL EXAM: Unchanged from previously dictated. ASSESSMENT AND PLAN: 1. Visually significant cataract, right eye. After risks, benefits, alternatives, as well as expectations were delivered to the patient, she elected to go forward with cataract removal. She understands the risks include but not limited to infection, bleeding, loss of vision, loss of the eye itself. Secondly, she understands postoperatively she is likely to require spectacle correction for best visual acuity. Finally, a complete ophthalmic exam was performed, there is not determined to be any other source of visual decline other than that of the cataract. 2. COVID-19, the patient was briefed in the office and consented for elective cataract surgery in the setting of the pandemic of coronavirus. She understands that she is at heightened risk going into a hospital setting; however, feels that her activities of daily living are depleted severe enough by her cataracts that she is willing to incur this risk and go forward with her elective procedure. PSYCHIATRIC Signed and Approved by: BINDU MCQUEEN 06/12/2021 12:13:00[facility]04-07-2022 NoteOPERATIVE NOTE PREOPERATIVE HISTORY AND PHYSICAL HISTORY: The patient is a 70-year-old white female with complaints of declining vision out of her left eye. This has been ongoing for a period of approximately one year, gradually worsening over that timeframe. 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 She complains that colors are appearing dull and worsening over the last several years. She has difficulty at night time while driving, with headlights creating glare and halos. PAST OCULAR HISTORY: Cataracts. PAST MEDICAL HISTORY: 1. Kidney stones. 2. Hypertension. 3. Hypothyroidism. SOCIAL HISTORY: She drinks occasionally. Denies tobacco and recreational drug abuse. SYSTEMIC MEDICATIONS: Include triamterene/hydrochlorothiazide, Klor-Con, Synthroid and azithromycin. ALLERGIES: Denied. REVIEW OF SYSTEMS: No pertinent positives. PHYSICAL EXAM: VITALS: Blood pressure measured 122/70 with respirations of 12 and pulse 56. GENERAL: In general, she is awake, alert and oriented x3, well developed, well nourished, in no acute distress. HEART: Regular rate and rhythm. LUNGS: Clear bilaterally. ABDOMEN: Soft, non-tender, non-distended. EXTREMITIES: No pitting edema. OPHTHALMIC EXAM: Revealed a visual acuity of 20/60 in the right that glared to 20/200, and 20/50 -1 in the left that glared to 20/200. Pupils motility, muscle balance, confrontational visual choe were within normal limits bilaterally. Pressures measured at 16 bilaterally. Slit lamp exam revealed blepharitis with a severe decrease in tear film bilaterally. Conjunctiva, cornea, anterior chamber and iris were within normal limits bilaterally. Lens status demonstrated 2+ nuclear sclerosis with 2+ cortical changes bilaterally. FUNDUS EXAM: Revealed a good view with good dilation bilaterally. Optic discs, macula, vessels, periphery and vitreous were within normal limits bilaterally. ASSESSMENT AND PLAN: 1. Visually significant cataract, left eye. After risks, benefits, alternatives, as well as expectations were delivered to the patient, she elected to go forward with cataract removal. She understands the risks include but not limited to infection, bleeding, loss of vision, loss of the eye itself. Secondly, she understands that postoperatively likely will require spectacle correction for best visual acuity. She has elected to receive a Toric intraocular lens and understands that this carries with it an out of pocket expense. Finally, a complete ophthalmic exam was performed, is not showing other source of vision decline other than that of the cataract. 2. COVID-19, the patient was briefed in the office and consented for elective cataract surgery in the setting of the pandemic of coronavirus. She understands that she's at a heightened risk going into a hospital setting, however, feels that her activities of daily living are severe enough depleted by her cataracts that she is willing to incur this risk and go forward with her elective procedure. PSYCHIATRIC Signed and Approved by: BINDU MCQUEEN 05/29/2021 14:18:00[facility]04-07-2022 NoteOPERATIVE NOTE SURGEON: Bindu Mcqueen D.O. PREOPERATIVE DIAGNOSIS: Nuclear sclerotic cataract left eye. POSTOPERATIVE DIAGNOSIS: Nuclear sclerotic cataract left eye. PROCEDURE: Cataract extraction with intraocular lens placed to the left eye. ANESTHESIA: Topical. ESTIMATED BLOOD LOSS: Zero. COMPLICATIONS: None. PROCEDURE: In the preoperative holding area, the patient received topical proparacaine and was then set up in an upright position. The 6 o'clock limbus was marked with a marking pen for future reference of the placement of a Toric lens. The patient was brought to the Operating Room in supine position. After proper identification, the left eye was prepped and draped in a sterile ophthalmic fashion. A paracentesis was created at the 5 o'clock position. Approximately 1 mL of unpreserved Xylocaine was injected into the anterior chamber followed by Amvisc Plus. Using a 2.6 mm Keratome blade, a clear corneal incision was created at the 3 o'clock limbus. A cystotome was then utilized to begin a curvilinear capsulorrhexis that was continued for 360 degrees with the Utrata forceps. BSS on a 26 gauge cannula was injected beneath the anterior capsule to hydrodissect as well as hydrodelineate the lens. After ensuring mobility, phacoemulsification was performed in a wwytcoa-bch-ecligi-type fashion. After all nuclear material had been removed from the eye, IA was introduced and all residual cortical material was cleaned up. Additional Amvisc Plus was injected into the posterior bag to inflate the anterior chamber as well as pressurize it. Using a manual Toric marking instrument, the 126 axis was discovered, referencing the 6 o'clock limbal edith that was performed preoperatively. This 126 axis was marked. A lens model [id number], 19.0 diopters was then injected and dialed approximately 10 degrees shy of the 126 degree axis. IA was reintroduced into the anterior chamber and all residual Amvisc Plus was removed from the eye. Using the tip of the IA, the lens was rotated the final 10 degrees to the 126 degree axis. BSS on a 30 gauge cannula was injected into the stroma of both the clear corneal incision as well as the paracentesis to hydrate the wounds. Additional BSS was injected into the anterior chamber to pressurize the eye at approximately 20 to 22 mmHg by finger tension. 0.1 mL of antibiotic was injected into the anterior chamber and Weck-Adriana sponges were used to check the wounds to be watertight. One drop of Apraclonidine and one drop of prednisolone acetate were placed into the eye and a shield was placed over top. The patient was then sent to the postoperative area in satisfactory condition to follow up the following day for postoperative care. PSYCHIATRIC Signed and Approved by: BINDU MCQUEEN 05/29/2021 14:18[facility]00[facility] noteNo InformationNort [employer] Other Evaluation noteNo assessment information available [facility] Work Phone: Evaluation note* Diagnosis Onset Date Resolution Status Hypothyroidism acute Medicare annual wellness visit, subsequent acute Osteoporosis acute Screening mammogram, encounter for acute [facility] Work Phone: evaluation note* Diagnosis Onset Date Resolution Status Hypercalcemia acute Hypothyroidism acute Medicare annual wellness visit, subsequent acute Osteoporosis acute Screening mammogram, encounter for acute Maxillary sinusitis acute [facility] Work Phone: Evaluation note* Diagnosis Onset Date Resolution Status Hypercalcemia acute Hypothyroidism acute Medicare annual wellness visit, subsequent acute Osteoporosis acute Screening mammogram, encounter for acute Maxillary sinusitis acute Osteoporosis acute [facility] Work Phone: Hismmvn general Narrative - Reported* Type Description Date Medical History Hypothyroidism Surgical History Colonoscopy 2010 Surgical History kidney stones Surgical History Lipoma Excision Surgical History Kidney Stones Cystoscopy Surgical History 2 cervical circlages Hospitalization History see above [facility] Other [facility] general Narrative - Reported* Type Description Date Medical History Hypothyroidism Medical History Osteopenia after menopause Medical History Osteopenia Medical History Hypercalcemia Medical History Hypothyroidism (acquired) Surgical History Colonoscopy 2010 Surgical History kidney stones Surgical History Lipoma Excision Surgical History Kidney Stones Cystoscopy Surgical History 2 cervical circlages Hospitalization History see above [facility] Other Summary Purpose Family History Relationship Condition Age at Onset Recorded Date/T rené father Heart disease Unknown Hypertension Unknown Diabetes mellitus Unknown Unknown Not Specified History of stroke Unknown sibling Malignant neoplasm Unknown Relationship Condition Age at Onset Recorded Date/T rené father Heart disease Unknown Hypertension Unknown Diabetes mellitus Unknown Unknown mother History of stroke Unknown sibling Malignant neoplasm Unknown Advance Directives Advance Directive Response Recorded Date/ Time Advance Directives No March 06, 2018 12:46pm Advance Directive Response Recorded Date/ Time Advance Directives No March 06, 2018 1:46pm Chief Complaint and Reason for Visit Chief Complaint Dysuria Chief Complaint wellness Reason for Visit Hypothyroidism Medicare annual wellness visit, subsequent Osteoporosis Screening mammogram, encounter for Chief Complaint wellness Sinus Congestion Reason for Visit Hypercalcemia Hypothyroidism Medicare annual wellness visit, subsequent Osteoporosis Screening mammogram, encounter for Maxillary sinusitis Chief Complaint wellness Sinus Congestion Amb Documentation CONSULT DR. [place] LOPEZ OWN THE BONE Reason for Visit Hypercalcemia Hypothyroidism Medicare annual wellness visit, subsequent Osteoporosis Screening mammogram, encounter for Maxillary sinusitis Osteoporosis Additional Source Comments REASON FOR VISIT (unrecogniz ed section and content) PATIENT SEEN IN 2019 INCREAS E IN LOW BACK PAINSINUS INFECTIONlabs and testsRefillsPOSSIBLE UTInasal congestion, sore throat- COVID NegUpdate Demographics - Personal Info INFORMATION SOURCE (unrecogn ized section and content) DATE CREATED AUTHOR 05/02/2022 [facility] DATE CREATED AUTHOR AUTHOR'S ORGANIZ ATION 02/02/2023 [facility] Teams (unrecognized sec tion and content) Team Status: Inactive Member Role Status Dates Ludy Evans NP-C Attending Provider Active Team Status: Active Member Role Status Dates Christy Lopez MD Primary Care Provider Active Team Status: Inactive Member Role Status Dates Christy Lopez MD Primary Care Provide r, Attending Provider Active Start: May 11, 2023 End: May 11, 2023 Team Status: Active Member Role Status Dates Christy Lopez MD Primary Care Provide r, Attending Provider Active Start: May 25, 2023 Team Status: Inactive Member Role Status Dates Christy Lopez MD Primary Care Provider Active Start: June 02, 2023 End: June 02, 2023 Sapphire Ortez APRN FISHING GUIDE-C Attending Provider Act joseph Start: June 02, 2023 End: June 02, 2023 Team Status: Active Member Role Status Dates Christy Lopez MD Primary Care Provider Active Start: June 06, 2023 VAMSI Ceballos Attending Provider Active Start : June 06, 2023 Team Status: Inactive Member Role Status Dates Christy Lopez MD Primary Care Provider Active Start: August 04, 2023 End: August 04, 2023 DESMOND Luque Attending Provider Active Start: August 04, 2023 End: August 04, 2023 Goals (unrecognized section and content) Goals may be documented in a n alternate section FOR RECORDS PERTAINING TO PATIENTS WHO ARE OR HAVE BEEN ENROLLED IN A CHEMICAL DEPENDENCY/SUBSTANCEABUSE PROGRAM, SOME INFORMATION MAY BE OMITTED. This clinical summary was aggregated from multiple sources. Caution should be exercised in using it in the provision of clinical care. This summary normalizes information from multiple sources, and as a consequence, information in this document may materially change the coding, format and clinical context of patient data. In addition, data may be omitted in some cases. CLINICAL DECISIONS SHOULD BE BASED ON THE PRIMARY CLINICAL RECORDS. [facility]. provides no warranty or guarantee of the accuracy or completeness of information in this document.
[2023-11-15 13:06] LABS: Calcium 9.8 mg/dL (8.5-10.1)
== END 2023-11-15 11:58 | disposition home or self-care (01) ==
LOC: LAB 11:59
PROVIDERS: PCP Family Medicine; Visit Provider Nurse Practitioner Family
DX: M81.0 Age-related osteoporosis without current pathological fracture (principal)
CPT/HCPCS: 36415; 82310

== ENCOUNTER 2023-12-08 07:34 | Outpatient (RCR) | payer MEDICARE, SELFPAY ==
[2023-12-08 09:24] VITALS: BP 108/60; PULSE 80; TEMP 36.2; O2SAT 98
[2023-12-08] MEDS: ROMOSOZUMAB-AQQG 210 MG/2.34 ML SYRINGE SQ (09:35)
== END 2023-12-08 23:59 | disposition home or self-care (01) ==
LOC: INF 07:34
PROVIDERS: PCP Family Medicine; Visit Provider Nurse Practitioner Family
DX: M81.0 Age-related osteoporosis without current pathological fracture (principal)
CPT/HCPCS: 96372; J3111

== ENCOUNTER 2024-01-10 07:40 | Outpatient (RCR) | payer MEDICARE, SELFPAY ==
[2024-01-10 09:34] VITALS: BP 95/64; PULSE 80; TEMP 36.9; O2SAT 100
[2024-01-10] MEDS: ROMOSOZUMAB-AQQG 210 MG/2.34 ML SYRINGE SQ (09:43)
== END 2024-02-07 23:59 | disposition home or self-care (01) ==
LOC: INF 07:40
PROVIDERS: PCP Family Medicine; Visit Provider Nurse Practitioner Family
DX: M81.0 Age-related osteoporosis without current pathological fracture (principal)
CPT/HCPCS: 96372; J3111

== ENCOUNTER 2024-02-10 07:33 | Outpatient (RCR) | payer MEDICARE, SELFPAY ==
[2024-02-10 10:11] VITALS: BP 100/60; PULSE 108; TEMP 36.3; O2SAT 97
[2024-02-10] MEDS: ROMOSOZUMAB-AQQG 210 MG/2.34 ML SYRINGE SQ (10:40)
== END 2024-03-09 23:59 | disposition home or self-care (01) ==
LOC: INF 07:33
PROVIDERS: PCP Family Medicine; Visit Provider Nurse Practitioner Family
DX: M81.0 Age-related osteoporosis without current pathological fracture (principal)
CPT/HCPCS: 96372; J3111

== ENCOUNTER 2024-03-13 07:39 | Outpatient (RCR) | payer MEDICARE, SELFPAY ==
[2024-03-13 10:12] VITALS: BP 101/58; PULSE 86; TEMP 36.2; O2SAT 96
[2024-03-13] MEDS: ROMOSOZUMAB-AQQG 210 MG/2.34 ML SYRINGE SQ (10:27)
== END 2024-04-06 23:59 | disposition home or self-care (01) ==
LOC: INF 07:39
PROVIDERS: PCP Family Medicine; Visit Provider Nurse Practitioner Family
DX: M81.0 Age-related osteoporosis without current pathological fracture (principal)
CPT/HCPCS: 96372; J3111

== ENCOUNTER 2024-04-12 07:40 | Outpatient (RCR) | payer MEDICARE, SELFPAY ==
[2024-04-12 12:56] VITALS: BP 101/64; PULSE 111; TEMP 36.6; O2SAT 95
[2024-04-12] MEDS: ROMOSOZUMAB-AQQG 210 MG/2.34 ML SYRINGE SQ (13:35)
== END 2024-04-13 09:01 | disposition home or self-care (01) ==
LOC: LAB 07:40
PROVIDERS: PCP Family Medicine; Visit Provider Nurse Practitioner Family
DX: M81.0 Age-related osteoporosis without current pathological fracture (principal)
CPT/HCPCS: 96372; J3111

== ENCOUNTER 2024-05-16 10:04 | Outpatient (RCR) | payer MEDICARE, SELFPAY ==
[2024-05-16 10:04] VITALS: BP 107/68; PULSE 71; TEMP 36.6; O2SAT 98
[2024-05-16] MEDS: ROMOSOZUMAB-AQQG 210 MG/2.34 ML SYRINGE SQ (10:34)
== END 2024-05-17 13:51 | disposition home or self-care (01) ==
LOC: INF 10:04
PROVIDERS: PCP Family Medicine; Visit Provider Family Medicine
DX: M81.0 Age-related osteoporosis without current pathological fracture (principal); Z78.0 Asymptomatic menopausal state
CPT/HCPCS: 96372; J3111

== ENCOUNTER 2024-06-15 07:36 | Outpatient (RCR) | payer MEDICARE, SELFPAY ==
[2024-06-15 10:05] VITALS: BP 113/71; PULSE 87; TEMP 36.6; O2SAT 97
[2024-06-15] MEDS: ROMOSOZUMAB-AQQG 210 MG/2.34 ML SYRINGE SQ (10:39)
== END 2024-06-18 10:04 | disposition home or self-care (01) ==
LOC: LAB 07:36
PROVIDERS: PCP Family Medicine; Visit Provider Nurse Practitioner Family
DX: M81.0 Age-related osteoporosis without current pathological fracture (principal); Z78.0 Asymptomatic menopausal state
CPT/HCPCS: 96372; J3111

== ENCOUNTER 2024-07-18 07:32 | Outpatient (RCR) | payer MEDICARE, SELFPAY ==
[2024-07-18 09:04] VITALS: BP 115/72; PULSE 71; TEMP 36.4; O2SAT 97
[2024-07-18] MEDS: ROMOSOZUMAB-AQQG 210 MG/2.34 ML SYRINGE SQ (09:25)
== END 2024-07-18 14:10 | disposition home or self-care (01) ==
LOC: LAB 07:32
PROVIDERS: PCP Family Medicine; Visit Provider Orthopaedic Surgery
DX: Z51.81 Encounter for therapeutic drug level monitoring (principal); M81.0 Age-related osteoporosis without current pathological fracture; Z78.0 Asymptomatic menopausal state
CPT/HCPCS: 96372; J3111

== ENCOUNTER 2024-08-17 07:36 | Outpatient (RCR) | payer MEDICARE, SELFPAY ==
[2024-08-17 08:05] VITALS: BP 100/60; PULSE 74; TEMP 36.4; O2SAT 98
[2024-08-17] MEDS: ROMOSOZUMAB-AQQG 210 MG/2.34 ML SYRINGE SQ (08:23)
== END 2024-09-06 17:02 | disposition home or self-care (01) ==
LOC: LAB 07:36
PROVIDERS: PCP Family Medicine; Visit Provider Orthopaedic Surgery
DX: Z51.81 Encounter for therapeutic drug level monitoring (principal); M81.0 Age-related osteoporosis without current pathological fracture; Z78.0 Asymptomatic menopausal state; Z79.899 Other long term (current) drug therapy
CPT/HCPCS: 36415; 82306; 82310; 82565; 96372; J3111

== ENCOUNTER 2024-08-17 10:39 | Outpatient (OUT) | payer MEDICARE, SELFPAY ==
--- OUTSIDE RECORDS SUMMARY | 2024-08-14 14:15 | XMS_ITS | Encounter Summary ---
Author Organization [facility] Address [address] [facility] [facility] [place] [address] Care Team Providers Care Nitroglycerin Nitrator Operator Batch Name Role Phone Christy Rae MD Primary Care Provider [phone] Reason for Referral * Consultation (Routine) - Authorized Specialty Diagnoses / Procedures Referred By Contac t Referred To Contact Pain Medicine Diagnoses Chronic left SI joint pain Procedures AL OFFICE/OUTPATIENT NEW HIGH MDM 60 MINUTES Abrahan Moffett PA Phone: tel: fax: Brandin Freire MD [address] [address] Phone: tel: fax: Referral ID Status Reason Start Date Expiration Date Visits Requested Visits Authorized [id number] Authorized Consult and Treat 08/14/2024 02/10/2025 1 1 Scheduling Instructions REFERRAL TO DR FREIRE FOR LT SI PAIN (POSSIBLE SI INJ) ; PLEASE CALL PT TO SCHEDULE Reason for Visit * Reason Comments Pain Encounter Details Date Type Department Care Team (Late st Contact Info) Description 08/14/2024 2:15 PM EDT [facility] Visit [facility] [address] [place] [address] Abrahan Moffett PA [address] [place] [address] Acute hip pain, left (Primary Dx); Chronic left SI joint pain Social History Tobacco Use Types Packs/Day Years Used Date Smoking Tobacco: Never Smokeless Tobacco: Never Tobacco Cessation:Counseling Given: Not Answered Alcohol Use Standard Drinks/Week Comments Not Currently 0 (1 standard drink = 0.6 oz pur e alcohol) Comments Unknown Sex and Gender Information Value Date Recorded Sex Assigned at Not on file Legal Sex Female 8:34 PM EDT Gender Identity Not on file Sexual Orientation Not on file documented as of this encounter Last Filed Vital Signs Vital Sign Reading Time Taken Comments Blood Pressure - - Pulse - - Temperature - - Respiratory Rate - - Oxygen Saturation - - Inhaled Oxygen Concentration - - Weight 49.9 kg (110 lb) 08/14/2024 2:11 PM EDT Height 165.1 cm (5' 5 ) 08/14/2024 2:11 PM EDT Body Mass Index 18.3 08/14/2024 2:11 PM EDT documented in this encounter Progress Notes * INA Peters - 08/14/2024 2:15 PM EDT Images from the original note were not included. Orthopedic Office note: NAME: Ana M Vernon : 1950 (NEW PT) LT HIP PAIN FOR YRS- INCREASE PAIN 2MO- NO KNOWN INJURY XRAY LT HIP TODAY EPIC 08/14/24 HX PT YRS AGO C/O PAIN POSTERIOR HIP/SI- DIFFICULTY SLEEPING- INCREASE PAIN WITH PROLONG SITTING- DENIES RADIATING PAIN- DENIES N/T- +STIFFNESS-+TYLENOL PRN Back Pain This is a recurrent problem. The current episode started more than 1 year ago. The problem occurs daily. The problem has been waxing and waning. Pertinent negatives include no abdominal pain, chest pain, fever, headaches, numbness or weakness. The symptoms are aggravated by bending, lying down and twisting. Hip Musculoskeletal Exam Gait Gait is normal. Inspection Leg length disparity: no discrepancy Left Erythema: none Ecchymosis: none Edema: none Deformity: none Palpation Left Increased warmth: none Tenderness: present Lower lumbar region pain: moderate Lower lumbar region pain comment: SI JOINT Range of Motion Left Left hip range of motion is within functional limits. Active ROM: normal. Passive ROM: normal. Strength Left Left hip strength is normal. Extension: 5/5. Flexion: 5/5. Internal rotation: 5/5. External rotation: 5/5. Adduction: 5/5. Abduction: 5/5. Neurovascular Left Left hip neurovascular exam is normal. Pulses - PT: normal Posterior tibial: 2+ Special Tests Left MELA test (left): positive General Constitutional: appears stated age Labored breathing: no Psychiatric: normal mood and affect Neurological: alert and oriented x3 Skin: intact Lymphadenopathy: none Orders Placed This Encounter Procedures XR hip left 2 or 3 views Reason for exam:: pain Ambulatory referral to Pain Medicine Standing Status: Future Expected Date: 08/14/2024 Expiration Date: 02/14/2025 Referral Priority: Routine Referral Type: Consultation Referral Reason: Consult and Treat Referred to Provider: Brandin Freire MD Requested Specialty: Pain Medicine Number of Visits Requested: 1 Procedures Results - Imaging: - X-rays show small cystic changes in the left femoral neck head region that appear benign ICD-10-CM 1. Acute hip pain, left M25.552 XR hip left 2 or 3 views 2. Chronic left SI joint pain M53.3 Ambulatory referral to Pain Medicine G89.29 Assessment & Plan Left posterior hip pain. The pain is consistent with likely sacroiliac joint pain. Reproducible symptoms were discussed at the bedside. She experiences low-level pain daily with occasional worsening but reports no radicular symptoms. The hip exam is benign. X-rays were reviewed and discussed at the bedside, showing small cystic changes in the left femoral neck head region that appear benign. Diagnostic plan: A referral to pain management for an SI joint injection is recommended. She has previously consulted with Dr. Anderson. If symptoms persist or worsen, further imaging will be considered. Treatment plan: Surgical and nonsurgical treatment options were discussed. Follow-up: A follow-up visit is scheduled in 6 to 7 weeks to reassess progress post-injection. Questions answered in laymen terms at the bedside. The diagnosis, home exercise plan and any ongoing restrictions/ recommendations reviewed. If unable to be reached in office, I recommend evaluation at nearest Emergency Room if any symptoms worsened or new symptoms develop for requiring urgent evaluation. Visit was preformed using [employer]-airplane pilot photogrammetry speech recognition. documented in this encounter Plan of Treatment Upcoming Encounters Date Type Department Care Team (Late st Contact Info) Description 10/01/2024 3:00 PM EDT Office Visit [facility] [address] [place] [address] Abrahan Moffett PA [address] [facility] [address] [place] [address] Scheduled Referrals Name Type Priority Associated Diagnoses Order Schedule Ambulatory referral to Pain Medicine Outpatient Referral Routine Chronic left SI joint pain Expected: 08/14/2024 (Approximate), Expires: 02/14/2025 documented as of this encounter Procedures Procedure Name Priority Date/Time Associated Diagnosis Comments XR HIP 2 OR 3 VW LEFT Routine 08/14/2024 2:19 PM EDT Acute hip pain, left documented in this encounter Results * XR hip left 2 or 3 views (08/14/2024 2:19 PM EDT) Anatomical Region Laterality Modality Lower Extremities, Hip Left Radiograp hic Imaging Narrative 08/14/2024 10:15 PM EDT Imaging Result: AP and Lateral weight bearing left hip: Bones: The bony structures, including the femoral head, neck, and acetabulum, appear normal. There is no evidence of fractures, dislocations, or bony lesions, cortical outlines are intact, and trabecular patterns are preserved. Joint Spaces: The hip joint spaces are well-maintained bilaterally, mild sclerotic changes to SI joints Soft Tissues: The soft tissues around the hip joint appear normal. There are no signs of soft tissue swelling or calcifications. Alignment: The alignment of the hip joints is normal with no evidence of subluxation or deformity. Impression: Normal hip X-ray. No radiographic evidence of acute bony injury or degenerative changes. us Abrahan BUCKLEY IMG XR PROCEDURES Final Resul t documented in this encounter Visit Diagnoses Diagnosis Acute hip pain, left- Primary Chronic left SI joint pain Disorders of sacrum documented in this encounter Care Teams Nitroglycerin Nitrator Operator Batch Relationship Specialty Start Date End Date Christy Rae MD [address] [place] [place] [address] PCP - General Family Medicine 08/14/24 documented as of this encounter
--- OUTSIDE RECORDS SUMMARY | 2024-08-14 14:20 | XMS_ITS | Encounter Summary ---
Author Organization [facility] Address [address] [place] [address] Care Team Providers Care Dual Hose Cementer Name Role Phone Christy Rae MD Primary Care Provider [phone] Encounter Details Date Type Department Care Team (Late st Contact Info) Description 08/14/2024 2:20 PM EDT Ancillary Procedure [facility] [address] [place] [address] Arrived Social History Tobacco Use Types Packs/Day Years Used Date Smoking Tobacco: Never Smokeless Tobacco: Never Alcohol Use Standard Drinks/Week Comments Not Currently 0 (1 standard drink = 0.6 oz pur e alcohol) Comments Unknown Sex and Gender Information Value Date Recorded Sex Assigned at Not on file Legal Sex Female 8:34 PM EDT Gender Identity Not on file Sexual Orientation Not on file documented as of this encounter Plan of Treatment Upcoming Encounters Date Type Department Care Team (Late st Contact Info) Description 10/01/2024 3:00 PM EDT Office Visit [facility] [address] [place] [address] Abrahan Moffett PA [address] [place] [address] documented as of this encounter Procedures Procedure [...] t documented in this encounter Visit Diagnoses Not on filedocumented in this encounter Care Teams Dual Hose Cementer Relationship Specialty Start Date End Date Christy Rae MD [address] [place] [phone] PCP - General Family Medicine 08/14/24 documented as of this encounter
[2024-08-17 08:16] LABS: Calcium 9.4 mg/dL (8.5-10.1); Estimated GFR (African America >60 (>=60 mL/min/1.73m^2); Estimated GFR (Non-African Ame >60 (>=60 mL/min/1.73m^2)
--- OUTSIDE RECORDS SUMMARY | 2024-08-17 10:42 | XMS_ITS | Encounter Summary ---
Author Organization [facility] Address [address] [facility] [place] [address] Care Team Providers Care Work Distributor Name Role Phone Christy Rae MD Primary Care Provider [phone] Encounter Details Date Type Department Care Team (Latest Contact Info) Description 08/14/2024 Travel Social History Tobacco Use Types Packs/Day Years [...] Office Visit [facility] [address] [facility] [address] [place] [phone] Abrahan Moffett PA [address] [facility] [place] [address] documented as of this encounter Visit Diagnoses Not on filedocumented in this encounter Care Teams Work Distributor Relationship Specialty Start Date End Date Christy Rae MD [address] [place] [phone] PCP - General Family Medicine 08/14/24 documented as of this encounter
--- OUTSIDE RECORDS SUMMARY | 2024-08-17 10:42 | XMS_ITS | Encounter Summary ---
Author Organization [facility] Address [address] [place] [address] Care Team Providers Care Evaporative Cooler Installer Name Role Phone Christy Rae MD Primary Care Provider [phone] Encounter Details Date Type Department Care Team ([facility] Contact Info) Description 08/14/2024 Bamboo flowsheet [facility] [address] [place] [address] Abrahan Moffett PA [address] [place] [address] Social History Tobacco Use Types Packs/Day Years [...] Upcoming Encounters Date Type Department Care Team ([facility] Contact Info) Description 10/01/2024 3:00 PM EDT Office Visit [facility] [address] [place] [phone] Arbahan Moffett PA [address] [place] [address] documented as of this encounter Visit Diagnoses Not on filedocumented in this encounter Care Teams Evaporative Cooler Installer Relationship Specialty Start Date End Date Christy Rae MD [address] [place] [address] PCP - General Family Medicine 08/14/24 documented as of this encounter
--- OUTSIDE RECORDS SUMMARY | 2024-08-17 10:45 | XMS_ITS | CCD ---
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 Role Phone Brandin Bah Unavailable Christy [...] MC[employer]EN Consulting Unavailable DESMOND Evans Attending Provider [phone] Ludy Evans Attending Unavailable Ludy Evans Admitting Unavailable NO FAMILY, PHYSICIAN Primary Care Unavailable Ludy Evans Unavailable Sapphire Ortez Unavailable [phone] Unavailable Primary Care Provider Unavailkarina e FILE, APRIL Kaba Attending Unavailable FILE, APRIL Kaba Referring Unavailable Christy Lopez MD Primary Care Provider [phone] Allergies Allergy Classification Reported Allergen(s) Allergy Type Date of Onset Reaction(s) Facility (12 sources) Seasonal allergy Propensity to adverse reactions 4 Unknown, Unknown Reaction [facility] (12 sources) Cat dander Propensity to adverse reactions 4 Unknown, Unknown Reaction [facility] (2 sources) Allergies Reconciled Propensity to adverse reactions Unknown H?REL Other (2 sources) patient allergy list reviewed by nurse or physicia Propensity to adverse reactions 6 Comment:Done H?REL Other (6 sources) Seasonal allergy; Translations: [SEASONAL ALLERGIES] Propensity to adverse reactions Other: See Comments [facility] Medications Current Medications Medication Drug Class(es) Dates Sig (Normalized) Sig (Original) benzonatate 200 mg oral capsule (6 sources) Non-narcotic Antitussive Start: 03-16-2023 take 1 capsule by mouth every eight hours Benzonatate 200 MG 1 capsule as needed Orally Three times a day for 10 days Mar, Active Start: 03-25-2022 take 1 capsule by mo [facility] every eight hours Benzonatate 200 MG 1 capsule Orally Three times a day for 10 day(s) Mar, Not-Taking/PRN calcium carbonate 420 mg chewable tablet (6 sources) Start: 08-04-2023 Calcium Carbon ate ([place]) 168 mg calcium (420 mg) tablet,chewable Active 250 MG PO Daily August 04, 2023 3:04pm Start: 08-04-2023 End: 08-04-2023 take 1 tablet by mouth three times daily Calcium Carbonate ([place]) 168 mg calcium (420 mg) tablet,chewable Discontinued 168 MG PO Three times daily August 04, 2023 12:00am August 04, 2023 3:04pm calcium carbonate 1250 mg / cholecalciferol 125 unt oral tablet (2 sources) Vitamin D Calcium Carb-Cholecalciferol (Calcium 500+D) 500-10 MG-MCG tablet Active cholecalciferol 0.01 mg chewable tablet (3 sources) Vitamin D Start: 2023 take 1 tablet by mouth once daily Cholecalciferol (Vitamin D3) (Vitamin D3) 10 mcg (400 unit) tablet,chewable Active 10 MCG PO Daily August 04, 2023 12:00am Fish Oils (2 sources) omega-3 (Fish Oi l) 1200 MG capsule Active fluconazole 150 mg oral tablet (1 source) Azole Antifungal Start: 2022 Diflucan 150 MG 1 tablet Orally once for 2 days Take 1 tablet by mouth at the onset of any symptoms of vaginal yeast infection. Take the second tablet 3 days later. Jan, Active hydroCHLOROthiazide 50 mg / triamterene 75 mg oral tablet (20 sources) Potassium-sparin g Diuretic, Thiazide Diuretic Start: 2023 take 1 tablet by mouth once daily triamterene-hydroCHLOROthi azide (MAXZIDE) 75-50 mg per tablet Take 1 tablet by mouth once daily. 12/13/2023 Active Start: 06-07-2023 End: 03-12-2024 Triamterene-Hydrochlorothiaz id 75-50 mg tablet Active 0 .ROUTE .COMPLEX 90 March 12, 2024 5:08pm TAKE 1 TABLET DAILY Start: 06-06-2023 End: 06-07-2023 take 1 tablet by mouth once daily Triamterene-Hydrochlorothiazid 75-50 mg tablet Discontinued 1 TAB PO Daily June 06, 2023 12:00am June 07, 2023 12:20pm Start: 03-08-2018 End: 05-10-2023 take 1 tablet by mouth once daily Triamterene-Hydrochlorothiazid 75-50 mg tablet Discontinued 1 TAB PO Daily March 08, 2018 1:00am May 10, 2023 9:24am levothyroxine sodium 0.05 mg oral tablet (20 sources) l-Thyroxine Start: 12-20-2023 Levothyroxine 50 mcg tablet Active 0 .ROUTE .COMPLEX 112 December 20, 2023 11:47am TAKE 1 AND 1/4 TABLET BY MOUTH ONCE A DAY Start: 03-08-2018 End: 12-20-2023 Levothyroxine 50 mcg tablet Discontinued 50 MCG PO May 10, 2023 12:00am December 20, 2023 11:47am TAKE ONE AND ONE-FOURTH TABLET DAILY Levothyroxine So dium 50 MCG TAKE ONE AND ONE-FOURTH TABLET DAILY Active Multiple Vitamins-Minerals (Multivitamin Adults 50+) tablet (2 sources) Multiple Vitamins-Minerals (Multivitamin Adults 50+) tablet Active nitrofurantoin, macrocrystals 25 mg / nitrofurantoin, monohydrate 75 mg oral capsule (1 source) Nitrofuran Antibacterial Start: 2022 take 1 capsule by mouth every twelve hours Macrobid 100 MG 1 cap(s) Orally bid for 5 day(s) Jan, Active phenazopyridine hydrochloride 200 mg oral tablet (1 source) Start: 2022 take 1 tablet by mouth every eight hours Pyridium 200 MG 1 tablet after meals Orally Three times a day for 2 day(s) Jan, Active Potassium Chloride (Klor-Con M20) 20 mEq tablet,ER particles/crystals (2 sources) Start: 2023 take 2 tablets by mouth once daily in the morning, then take 1 tablet by mouth once daily in the evening Potassium Chloride (Klor-Con M20) 20 mEq tablet,ER particles/crystals Active 0 .ROUTE .COMPLEX 270 December 29, 2023 9:16am TAKE 2 TABLETS BY MOUTH EVERY MORNING AND 1 TABLET EVERY EVENING Start: 12-29-2023 take 2 tablets by mo uth once daily in the morning, then take 1 tablet by mouth once daily in the evening Potassium Chloride (Klor-Con M20) 20 mEq tablet,ER particles/crystals Active 0 .ROUTE .COMPLEX 270 December 29, 2023 8:16am TAKE 2 TABLETS BY MOUTH EVERY MORNING AND 1 TABLET EVERY EVENING 1.17 ml romosozumab-aqqg 89. 7 mg/ml prefilled syringe (2 sources) Start: 02-27-2024 Romosozumab-Aq qg (Evenity) 105 mg/1.17 mL syringe Active 210 MG SUBCUT every month February 27, 2024 1:00am Romosozumab-aqqg (EVENITY SC ) (2 sources) Start: 09-30-2023 Romosozumab-aq qg (EVENITY SC) 09/30/2023 Active romosozumab-aqqg (EVENITY SUBCUTANEOUS) (5 sources) Start: 09-30-2023 romosozumab-aq qg (EVENITY SUBCUTANEOUS) 09/30/2023 Active TRIAMTERENE-HYDROCHLOROTHIAZ ID ORAL (5 sources) TRIAMTERENE-HYDR OCHLOROTHIAZID ORAL Active Completed/Discontinued Medications Medication Drug Class(es) Dates Sig (Normalized) Sig (Original) azithromycin 250 mg oral tablet (10 sources) Macrolide Antimicrobial Start: 06-02-2023 End: 02-27-2024 Azithromycin 250 mg tablet Discontinued 250 MG PO daily 6 June 02, 2023 12:00am February 27, 2024 10:45am Take 2 the first day and then [...] 4 more days for 5 Mar, Not-Taking/PRN Calcium (7 sources) Phosphate Binder, Calcium Calciu m + D Not-Taking/PRN Calcium + D Acti ve fexofenadine hydrochloride 60 mg oral tablet (15 sources) Histamine-1 Receptor Antagonist Start: 03-08-2018 End: 05-10-2023 take 1 tablet by mouth twice daily Fexofenadine (Francisca Allergy) 60 mg Tablet Discontinued 60 MG PO Twice daily March 08, 2018 1:00am May 10, 2023 9:24am fexofenadine (Al legra Allergy) 180 MG tablet Active hydroCHLOROthiazide 25 mg oral tablet (5 sources) Thiazide Diuretic Start: 05-11-2023 End: 02-27-2024 take 1 tablet by mouth once daily Hydrochlorothiazide 25 mg tablet Discontinued 25 MG PO Daily May 11, 2023 12:00am February 27, 2024 10:46am ibandronic acid 150 mg oral tablet (19 sources) Bisphosphonate Start: 08-04-2023 End: 02-27-2024 take 1 tablet by mouth every month Ibandronate 150 mg tablet Discontinued 150 MG PO every month August 04, 2023 12:00am February 27, 2024 10:46am Start: 05-20-2023 End: 02-27-2024 Ibandronate 150 mg tablet Discontinued 0 .ROUTE .COMPLEX 3 May 20, 2023 8:56am February 27, 2024 10:46am TAKE 1 TABLET MONTHLY Start: 05-10-2023 End: 05-20-2023 take 1 tablet by mouth every month Ibandronate 150 mg tablet Discontinued 150 MG PO every month May 10, 2023 12:00am May 20, 2023 8:56am Ibandronate Sodi um 150 mg TAKE 1 TABLET MONTHLY Active methylPREDNISolone (7 sources) Corticosteroid Start: 12-05-2017 Depo-Medrol 40 mg Nov, 1 mL Multivitamin (Multiple Vitamins) Tablet (6 sources) Start: 03-08-2018 End: 05-10-2023 take 1 tablet by mouth once daily Multivitamin (Multiple Vitamins) Tablet Discontinued 1 TAB PO Daily March 08, 2018 12:00am May 10, 2023 8:24am Start: 03-08-2018 End: 05-10-2023 take 1 tablet by mouth once daily Multivitamin (Multiple Vitamins) Tablet Discontinued 1 TAB PO Daily March 08, 2018 1:00am May 10, 2023 9:24am Start: 03-08-2018 take 1 tablet by inez once daily Multivitamin (Multiple Vitamins) Tablet Active 1 TAB PO Daily March 08, 2018 12:00am Multivitamin Adult - (7 sources) Multivitamin Casimiro lt - as directed Orally Not-Taking/PRN Multivitamin Casimiro lt - as directed Orally Active naproxen sodium 220 mg oral tablet (13 sources) Nonsteroidal Anti-inflammatory Drug Start: 03-08-2018 End: 05-10-2023 take 1 tablet by mouth every twelve hours as needed for pain Naproxen Sodium (Aleve) 220 mg Tablet Discontinued 220 MG PO Q12H as needed for Pain March 08, 2018 1:00am May 10, 2023 9:24am [place] 3 Fish Oil (7 sources) [place] 3 Fish Oil one oral daily Not-Taking/PRN [place] 3 Fish Oil one oral daily Active [place] 2-Jdo-Jvv-Fish Oil (4 sources) Start: 03-08-2018 End: 05-10-2023 take 1 capsule by mouth once daily [place] 6-Cjx-Obd-Fish Oil Discontinued 1 CAP PO Daily March 08, 2018 1:00am May 10, 2023 9:24am Start: 03-08-2018 take 1 capsule by mo [facility] once daily [place] 9-Fpi-Pkx-Fish Oil Active 1 CAP PO Daily March 08, 2018 12:00am [place] 5-Zkf-Ryp-Fish Oil 1,000 mg (120 mg-180 mg) Capsule (2 sources) Start: 03-08-2018 End: 05-10-2023 take 1 capsule by mouth once daily [place] 4-Lhg-Eqr-Fish Oil 1,000 mg (120 mg-180 mg) Capsule Discontinued 1 CAP PO Daily March 08, 2018 1:00am May 10, 2023 9:24am Start: 03-08-2018 End: 05-10-2023 take 1 capsule by mouth once daily [place] 0-Tyw-Qtr-Fish Oil 1,000 mg (120 mg-180 mg) Capsule Discontinued 1 CAP PO Daily March 08, 2018 12:00am May 10, 2023 8:24am microencapsulated potassium chloride 20 meq extended release oral tablet (20 sources) Start: 05-10-2023 End: 12-29-2023 take 2 tablets by mouth once daily in the morning, then take 1 tablet by mouth once daily in the evening Potassium Chloride 20 mEq tablet,ER particles/crystals Discontinued 40 MEQ PO Twice daily May 10, 2023 12:00am December 29, 2023 9:16am TAKE 2 TABLETS EVERY MORNING AND 1 TABLET EVERY EVENING Start: 05-10-2023 take 2 tablets by mo uth once daily in the morning, then take 1 tablet by mouth once daily in the evening Potassium Chloride Active 40 MEQ PO Twice daily May 10, 2023 12:00am TAKE 2 TABLETS EVERY MORNING AND 1 TABLET EVERY EVENING Start: 03-08-2018 End: 05-10-2023 Potassium Chloride (Klor-Con M20) 20 mEq tablet,ER particles/crystals Discontinued 20 MEQ PO Daily March 08, 2018 1:00am May 10, 2023 9:24am take 1 tablet by inez every twenty-four hours Problems Active Problems Problem Classification Problem Date Documented Da te Episodic/Chronic Cataract (8 sources) Age-related nuclear cataract, right eye; Translations: [Age-related nuclear cataract, left eye] Onset: 05-14-2021 Chronic Conditions associated with dizziness or vertigo (1 source) Benign paroxysmal positional vertigo; Translations: [Benign paroxysmal vertigo, unspecified ear] 02-27-2024 Episodic Essential hypertension (5 sources) Essential (primary) hypertension; Translations: [Benign essential hypertension] Onset: 06-06-2017 Chronic Osteoarthritis (7 sources) Osteoarthritis of right knee joint; Translations: [Unilateral primary osteoarthritis, right knee] Chronic Osteoporosis (20 sources) Postmenopausal osteopenia; Translations: [Age-related osteoporosis without current pathological fracture] Onset: 03-15-2024 05-11-2023 Chronic Other aftercare (1 source) Other group home (current) drug therapy; Translations: [Encounter for long-term (current) use of medications] Onset: 03-15-2024 Episodic Other bone disease and musculoskeletal deformities (6 [...] PARATHYROID GLAND UNS] Onset: 05-01-2022 Chronic Other gastrointestinal disorders (1 source) Irritable bowel syndrome; Translations: [Irritable bowel syndrome without diarrhea] 05-28-2024 Chronic Other gastrointestinal disorders (1 source) Irritable bowel syndrome without diarrhea; Translations: [Irritable bowel syndrome] 05-28-2024 Chronic Other infections; including parasitic (1 source) Personal history of other infectious and parasitic diseases Episodic Other nervous system disorders (12 sources) Chronic pain; Translations: [Other chronic pain] 05-11-2023 Chronic Other nervous system disorders (1 source) Other chronic pain Onset: 06-24-2021 Resolved: 06-24-2021 Chronic Other non-traumatic joint disorders (7 sources) Pain in right hip joint; Translations: [Pain in right hip] Episodic Other non-traumatic joint disorders (7 sources) Anterior knee pain; Translations: [Pain in right knee] Episodic Other non-traumatic joint disorders (2 sources) Hip pain; Translations: [Pain in left hip] 08-12-2024 Episodic Other nutritional; endocrine; and metabolic disorders (11 sources) Hypercalcemia; Translations: [Hypercalcemia] 05-11-2023 Chronic Other nutritional; endocrine; and metabolic disorders (7 sources) Hypercalcemia; Translations: [Hypercalcemia] Onset: 04-27-2022 Chronic Other nutritional; endocrine; and metabolic disorders (7 sources) H/O: metabolic disorder; Translations: [Personal history of other endocrine, nutritional and metabolic disease] Episodic Other screening for suspected conditions (not mental disorders or infectious disease) (10 sources) Encounter for screening mammogram for malignant neoplasm of breast; Translations: [Patient encounter status] Onset: 05-01-2022 Episodic Other upper respiratory infections (10 sources) Chronic sinusitis; Translations: [Chronic sinusitis, unspecified] 06-02-2023 Chronic Other upper respiratory infections (10 sources) Acute maxillary sinusitis, unspecified; Translations: [Acute pharyngitis] Onset: 07-09-2014 Episodic Residual codes; unclassified (1 source) Family history of malignant neoplasm of breast; Translations: [FAMILY HX MALIG NEOPLASM OF BREAST] Onset: 05-01-2022 Episodic Residual codes; unclassified (2 sources) Postmenopausal state; Translations: [Asymptomatic menopausal state] 08-04-2023 Episodic Spondylosis; intervertebral disc disorders; other back problems (20 sources) Degeneration of lumbar intervertebral disc; Translations: [Other intervertebral disc degeneration, lumbar region] Onset: 06-24-2021 Resolved: 06-24-2021 Chronic Spondylosis; intervertebral disc disorders; other back problems (16 sources) Lumbar radiculopathy; Translations: [Radiculopathy, lumbar region] Onset: 07-17-2013 Resolved: 06-24-2021 Episodic Sprains and strains (14 sources) Strain of muscle and/or tendon of thigh; Translations: [Strain of muscle, fascia and tendon of the posterior muscle group at thigh level, left thigh, subsequent encounter] Episodic Thyroid disorders (20 sources) Hypothyroidism; Translations: [Hypothyroidism, unspecified] Onset: 05-01-2022 [...] Test Name Value Interpretation Reference Range Facility XR Hip - left 3 [facility] Result: AP and Lateral weight bearing [...] of acute bony injury or degenerative changes. [facility] [employer] Radiology Study observation (narrative) [facility] Chris 05-21-2024 CNPN Telephone (RHEUMN) ANA M WALTER ([id number]) 1950 F Date Time Provider Department 05/21/24 APRIL YADAV During your visit today, we recorded the following information about you: April Yadav MD 05/21/2024 2:09 PM Signed ----- Message from Jazzy Browning RN sent at 05/21/2024 1:59 PM EDT ----- Regarding: PA for Evenity Injections ----- Message ----- From: Carol Alva Sent: 05/21/2024 12:53 PM EDT To: [facility] Patient called and LVM. She is getting her Evenity injections in [place]. Requesting a prior auth for their location from Dr. Yadav. Can return patient call to [phone] for more info. April Yadav MD 05/21/2024 2:10 PM Signed I am confused by this. I can only write the order for evenity and do the prior auth for this if she is getting here at [facility] through me. Otherwise she needs to get the prior auth from the doctor who is writing the order for her to receive it in [place]. please let her know this. Jazzy Celestin, RN 05/21/2024 2:40 PM Addendum Spoke with patient on the phone. Patient made aware that the PA for Evenity would have to come from the provider who is administering the medication. Patient stated that she will contact outside provider. Patient states understanding. All questions answered. Allergies As of Date: 05/21/2024 Noted Allergy Reaction SEASONAL ALLERGIES 03/02/2024 14 - Other: See Comments Date Reviewed: 03/03/2024 Reviewed by: April Yadav MD - Fully Assessed Reason for Visit: Patient Update [1234] Prescriptions as of 05/21/2024 - levothyroxine (SYNTHROID) 50 mcg tablet - potassium chloride ER (KLOR-CON) 20 mEq tablet - romosozumab-aqqg (EVENITY SUBCUTANEOUS) - triamterene-hydroCHLO ROthiazide (MAXZIDE) 75-50 mg per tablet Take 1 tablet by mouth once daily. - TRIAMTERENE-HYDROCHLO ROTHIAZID ORAL Problem List As Of Date: 05/21/2024 (None) Encounter Status:Closed by JAZZY CELESTIN on 05/21/24 [facility] ANA M WALTER ([id number]) 1950 F Date Time Provider Department 05/21/24 APRIL YADAV During your visit today, we recorded the following information about you: Sandie Zimmerman 05/21/2024 9:29 AM Signed Faxed 03/15/24 lab results to pt's [facility] Dr. Bernie Lopez at [phone] per pt's request. Received confirmation. Allergies As of Date: 05/21/2024 Noted Allergy Reaction SEASONAL ALLERGIES 03/02/2024 14 - Other: See Comments Date Reviewed: 03/03/2024 Reviewed by: April Yadav MD - Fully Assessed Reason for Visit: Results [95] Prescriptions as of 05/21/2024 - levothyroxine (SYNTHROID) 50 mcg tablet - potassium chloride ER (KLOR-CON) 20 mEq tablet - romosozumab-aqqg (EVENITY SUBCUTANEOUS) - triamterene-hydroCHLO ROthiazide (MAXZIDE) 75-50 mg per tablet Take 1 tablet by mouth once daily. - TRIAMTERENE-HYDROCHLO ROTHIAZID ORAL Problem List As Of Date: 05/21/2024 (None) Encounter Status:Closed by SANDIE ZIMMERMAN on 05/21/24 Normal [facility] 25(OH)D3 SerPl-ncon 2024 25-hydroxyvitamin D3 [Mass/Vol] 41.8 ng/mL Normal 31.0-80.0 [facility] Comment on above: Order Comment: Speci men Type: BLOOD SPECIMEN Ordering Facility: [facility] Address: [address] [place] [address] Result Comment: Clas sification of 25 OH Vitamin D status: Deficiency/Insufficiency: < or = 30 ng/ml. Sufficiency/Optimal Levels: 31-80 ng/mL Toxicity: > 100 ng/mL. Test performed by chemiluminescent immunoassay. Performed By: #### 1 989-3 #### [facility] CLIA [id number] [address] [place] [address] [place] [address] [place] CNPMackenzie 03-15-2024 CNPN Telephone (RHEUMN) ANA M WALTER ([id number]) 1950 F Date Time Provider Department 03/15/24 APRIL YADAV During your visit today, we recorded the following information about you: Pat Alfaro 03/15/2024 10:19 AM Addendum Received Bone Density of 05/25/2023 from [facility]. Scanned into chart for review. Scan on 03/15/2024 10:09 AM by Provider, Frankie, ANILA: Bone Density April Yadav MD 03/15/2024 1:48 PM Signed the report mentions trochanter bmd, which is not used for diagnosis of osteoporosis. need to see images. April Yadav MD 03/19/2024 9:50 AM Signed I discussed results with Ana M. Her fasting glucose is mildly elevated at 100- she will discuss this with her PCP. I received her bone density images May 25, 2023 [place] [employer] L1-L4 1.024 T-score -1.3 Left femoral neck 0.867 T-score -1.2 Left total hip 0.815 T-score -1.5 Right femoral neck 0.875 T-score -1.2 Right total hip 0.838 T-score -1.3 She is already being treated with Evenity by her local doctor. She will go ahead and complete the 12 months of this and she will see me back in August with labs prior. Will likely then give her a dose of Reclast and then she could start a drug holiday from medicines. Allergies As of Date: 03/15/2024 Noted Allergy Reaction SEASONAL ALLERGIES 03/02/2024 14 - Other: See Comments Date Reviewed: 03/03/2024 Reviewed by: April Yadav MD - Fully Assessed Reason for Visit: Received Outside Medical Records [3576] Cmt: Bone Density of 05/25/2023 Primary Visit Diagnosis:Osteoporosi s, post menopausal [M81.0] Other Visit Diagnosis:Encounter for long-term (current) use of medications [Z79.899] Prescriptions as of 03/19/2024 - levothyroxine (SYNTHROID) 50 mcg tablet - potassium chloride ER (KLOR-CON) 20 mEq tablet - romosozumab-aqqg (EVENITY SUBCUTANEOUS) - triamterene-hydroCHLO ROthiazide (MAXZIDE) 75-50 mg per tablet Take 1 tablet by mouth once daily. - TRIAMTERENE-HYDROCHLO ROTHIAZID ORAL Problem List As Of Date: 03/15/2024 (None) Letter Text Encounter Status:Closed by JAZZY CELESTIN on 03/15/24 Normal [facility] Comprehensive metabolic 2000 panelon 03-15-2024 Albumin [Mass/Vol] 4.9 g/dL Normal 3.9-4.9 [facility] Comment on above: Order Comment: Speci men Type: BLOOD SPECIMEN Ordering Facility: [facility] Address: [address] [place] [address] Performed By: #### 2 4323-8, 24950-5, 277-1, 2730-8 #### [facility] CLIA [id number] [address] [place] [address] [place] ALP [Catalytic activity/Vol] 54 U/L Normal 34-123 [facility] Comment on above: Order Comment: Speci men Type: BLOOD SPECIMEN Ordering Facility: [facility] Address: [address] [place] [address] Performed By: #### 2 4323-8, 90245-5, 277-1, 2730-8 #### [facility] CLIA [id number] [address] [place] [address] [place] ALT [Catalytic activity/Vol] 16 U/L Normal 7-38 [facility] Comment on above: Order Comment: Speci men Type: BLOOD SPECIMEN Ordering Facility: [facility] Address: [address] [place] [address] Performed By: #### 2 4323-8, 91336-1, 2776-1, 2730-8 #### [facility] CLIA [id number] [address] [place] [address] [place] Anion gap [Moles/Vol] 14 mmol/L Normal 8-15 [facility] Comment on above: Order Comment: Speci men Type: BLOOD SPECIMEN Ordering Facility: [facility] Address: [address] [place] [address] Performed By: #### 2 4323-8, 33914-6, 2771, 8 #### [facility] CLIA [id number] [address] [place] [address] [place] AST [Catalytic activity/Vol] 20 U/L Normal 13-35 [facility] Comment on above: Order Comment: Speci men Type: BLOOD SPECIMEN Ordering Facility: [facility] Address: [address] [place] [address] Performed By: #### 2 4323-8, 51759-3, 277-, 8 #### [facility] CLIA [id number] [address] [place] [address] [place] Bilirubin [Mass/Vol] 0.6 mg/dL Normal 0.2-1.3 [facility] Comment on above: Order Comment: Speci men Type: BLOOD SPECIMEN Ordering Facility: [facility] Address: [address] [place] [address] Performed By: #### 2 4323-8, 96545-1, 27708-07, 2730-09 #### [facility] CLIA [id number] [address] [place] [address] [place] Calcium [Mass/Vol] 9.7 mg/dL Normal 8.5-10.2 [facility] Comment on above: Order Comment: Speci men Type: BLOOD SPECIMEN Ordering Facility: [facility] Address: [address] [place] [address] Performed By: #### 2 4323-8, 12518-8, 27708-07, 2730-09 #### [facility] CLIA [id number] [address] [place] [address] [place] Chloride [Moles/Vol] 99 mmol/L Normal 98-107 [facility] Comment on above: Order Comment: Speci men Type: BLOOD SPECIMEN Ordering Facility: [facility] Address: [address] [place] [address] Performed By: #### 2 4323-8, 93325-3, 2776-02, 2730-09 #### [facility] CLIA [id number] [address] [place] [address] [place] CO2 [Moles/Vol] 28 mmol/L Normal 22-30 [facility] Comment on above: Order Comment: Speci men Type: BLOOD SPECIMEN Ordering Facility: [facility] Address: [address] [place] [address] Performed By: #### 2 4323-8, 80730-6, 2776-02, 2730-09 #### [facility] CLIA [id number] [address] [place] [address] [place] Creatinine [Mass/Vol] 0.67 mg/dL Normal 0.58-0.96 [facility] Comment on above: Order Comment: Speci men Type: BLOOD SPECIMEN Ordering Facility: [facility] Address: [address] [place] [address] Performed By: #### 2 4323-8, , 2776-02, 2730-09 #### [facility] CLIA [id number] [address] [place] [address] [place] Creatinine and Glomerular filtration rate.predicted panel (S/P/Bld) 94 mL/min/1.73m??? Normal >=60 [facility] Comment on above: Order Comment: Speci men Type: BLOOD SPECIMEN Ordering Facility: [facility] Address: [address] [place] [address] Result Comment: Sharri mated Glomerular Filtration Rate (eGFR) is calculated using the 2020 CKD-EPI creatinine equation. This equation utilizes serum creatinine, sex, and age as parameters. The creatinine assay has traceable calibration to isotope dilution-mass spectrometry. Refer to KDIGO guidelines for clinical interpretation. In patients with unstable renal function, e.g. those with acute kidney injury, the eGFR may not accurately reflect actual GFR. Performed By: #### 2 4323-8, 81918-7, 2776-02, 2730-09 #### [facility] CLIA [id number] [address] [place] [address] [place] Glucose [Mass/Vol] 100 mg/dL High 74-99 [facility] Comment on above: Order Comment: Enrique steward Type: BLOOD SPECIMEN Ordering Facility: [facility] Address: [address] [place] [address] Result Comment: The [place] Diabetes Association (ADA) provides guidance for cutoff values for fasting glucose and random glucose. The ADA defines fasting as no caloric intake for at least 8 hours. Fasting plasma glucose results between 100 to 125 mg/dL indicate increased risk for diabetes (prediabetes). Fasting plasma glucose results greater than or equal to 126 mg/dL meet the criteria for diagnosis of diabetes. In the absence of unequivocal hyperglycemia, results should be confirmed by repeat testing. In a patient with classic symptoms of hyperglycemia or hyperglycemic crisis, random plasma glucose results greater than or equal to 200 mg/dL meet the criteria for diagnosis of diabetes. Reference: Standards of Medical Care in Diabetes 2016, [place] Diabetes Association. Diabetes Care. 2016.39(Suppl 1). Performed By: #### 2 4323-8, 41409-5, 2777-1, 2731-8 #### [facility] CLIA [id number] [address] [place] [address] [place] Potassium [Moles/Vol] 4.0 mmol/L Normal 3.7-5.1 [facility] Comment on above: Order Comment: Simeoni men Type: BLOOD SPECIMEN Ordering Facility: [facility] Address: [address] [place] [address] Performed By: #### 2 4323-8, 83959-1, 2777-1, 2731-8 #### [facility] CLIA [id number] [address] [place] [address] [place] Protein [Mass/Vol] 7.5 g/dL Normal 6.3-8.0 [facility] Comment on above: Order Comment: Simeoni men Type: BLOOD SPECIMEN Ordering Facility: [facility] Address: [address] [place] [address] Performed By: #### 2 4323-8, 00499-8, 277-1, 2738 #### [facility] CLIA [id number] [address] [place] [address] [place] Sodium [Moles/Vol] 141 mmol/L Normal 136-144 [facility] Comment on above: Order Comment: Speci men Type: BLOOD SPECIMEN Ordering Facility: [facility] Address: [address] [place] [address] Performed By: #### 2 4323-8, 11264-9, 277-1, 2730-8 #### [facility] CLIA [id number] [address] [place] [address] [place] Urea nitrogen [Mass/Vol] 11 mg/dL Normal 7-21 [facility] Comment on above: Order Comment: Speci men Type: BLOOD SPECIMEN Ordering Facility: [facility] Address: [address] [place] [address] Performed By: #### 2 4323-8, 94628-2, 277-1, 8 #### [facility] CLIA [id number] [address] [place] [address] [place] Magnesium SerPl-mCncon 03-15 Magnesium [Mass/Vol] 2.2 mg/dL Normal 1.7-2.3 [facility] Comment on above: Order Comment: Speci men Type: BLOOD SPECIMEN Ordering Facility: [facility] Address: [address] [place] [address] Performed By: #### 2 4323-8, 47390-0, 277-1, 8 #### [facility] CLIA [id number] [address] [place] [address] [place] PROCOLLAGEN TYPE 1on 025 PROCOLLAGEN TYPE 1 23 ug/L Normal [facility] Comment on above: Order Comment: Speci men Type: BLOOD SPECIMEN Ordering Facility: [facility] Address: [address] [place] [address] Result Comment: Narayan enopausal: 20 - 101 ug/L Postmenopausal: 16 - 96 ug/L Performed By: [employer] [address] [place] [address] Artificial Inseminator: Bindu Rosa MD, PhD CLIA Number: [id number] Performed By: #### P ROCOL #### [facility] CLIA [id number] [address] [place] [address] PTH-Intact SerPl-mCncon 02-0 Parathyrin.intact [Mass/Vol] 58 pg/mL Normal 15-65 [facility] Comment on above: Order Comment: Speci men Type: BLOOD SPECIMEN Ordering Facility: [facility] Address: [address] [place] [address] Performed By: #### 2 4323-8, 32971-5, 2777-1, 2731-8 #### [facility] CLIA [id number] [address] [place] [address] [place] Phosphate SerPl-mCncon 03-15 Phosphate [Mass/Vol] 3.5 mg/dL Normal 2.7-4.8 [facility] Comment on above: Order Comment: Speci men Type: BLOOD SPECIMEN Ordering Facility: [facility] Address: [address] [place] [address] Performed By: #### 2 4323-8, 66116-2, 2777-1, 2731-8 #### [facility] CLIA [id number] [address] [place] [address] [place] CNPNon 03-12-2024 CNPN Telephone (RHEUMN) ANA M WALTER ([id number]) 1950 F Date Time Provider Department 03/12/24 APRIL YADAV RHEUMN During your visit today, we recorded the following information about you: Pat Alfaro 03/12/2024 3:15 PM Signed Received outside medical records from [facility]. Scanned into chart for review. Allergies As of Date: 03/12/2024 Noted Allergy Reaction SEASONAL ALLERGIES 03/02/2024 14 - Other: See Comments Date Reviewed: 03/03/2024 Reviewed by: April Yadav MD - Fully Assessed Reason for Visit: Received Outside Medical Records [1404] Cmt: [facility]. Prescriptions as of 03/12/2024 - levothyroxine (SYNTHROID) 50 mcg tablet - potassium chloride ER (KLOR-CON) 20 mEq tablet - romosozumab-aqqg (EVENITY SUBCUTANEOUS) - triamterene-hydroCHLO ROthiazide (MAXZIDE) 75-50 mg per tablet Take 1 tablet by mouth once daily. - TRIAMTERENE-HYDROCHLO ROTHIAZID ORAL Problem List As Of Date: 03/12/2024 (None) Encounter Status:Closed by APRIL YADAV on 03/12/24 [facility] CNOVon 03-02-2024 CNOV Office Visit (BONEMN ) SABAANA M ([id number]) 1950 F Date Time Provider Department 03/02/24 2:00 PM APRIL YADAV BONEMN During your visit today, we recorded the following information about you: Temperature Pulse Blood pressure Weight 98.5 degrees 96/minute 114/62 52 kg Height 1.651 m April Yadav MD 03/03/2024 8:38 AM Signed The patient is seen in consultation at the request of self for an opinion and advise regarding the management of the patient?s osteoporosis. OSTEOPOROSIS AND METABOLIC BONE DISEASE HISTORY and PHYSICAL Gender: female Ethnicity: White Age: [age] year old Chief Complaint: Evaluation for osteoporosis TREATMENTS: Current Anabolic Medications Bone Formation Agents - Sclerostin Inhibitor, Monoclonal Antibody Start End romosozumab-aqqg (EVENITY SUBCUTANEOUS) 09/30/2023 -- Class: Historical Med Osteoporosis - Antiresorptive Treatments Treatment Start Date Stop Date Stop Reason Comment ibandronate 08/2023 was told she had decline in bmd on this and was changed to evenity fosamax 2009 2009 just for 4 months caused GI upset- then was on ibandronate for 1 year after this, then off Osteoporosis - Anabolic Treatments Treatment Start Date Stop Date Stop Reason Comment evenity 09/2023 Osteoporosis FRAX Risk Factors No Fractures (Comment: no fragility fractures. had traumatic nasal fracture - ran into [facility]- around age 32) Family History of osteoporosis mother, sister No parent with a hip fracture Not a current smoker no significant glucocorticoid use No rheumatoid arthritis No secondary osteoporosis No alcohol use more than 3 units per day Osteoporosis Medication Risk Factors No use of Anti-convulsants No use of Furosemide Osteoporosis Disease-Specific Risk Factors Weight < 127 lbs Height loss 1/2 inch since age 42 normal balance Fall history Renal calculi (Comment: over 10 yrs ago) No CKD Caffeine intake: none Exercise routine: (Comment: hikes and rides bikes) Review of Systems CONSTITUTION: Negative for: Fever and Recent weight change HEENT: Positive for: Nosebleeds Negative for: Mouth sores, Trouble swallowing and Dry mouth RESPIRATORY: Negative for: Cough, Shortness of breath and Pain with breathing GASTROINTESTINAL: Negative for: Melena, Diarrhea, Heartburn and Abdominal pain MUSCULOSKELETAL: Positive for: Arthralgias, Myalgias and Morning Joint Stiffness Negative for: Muscle weakness and Joint swelling NEUROLOGICAL: Positive for: Memory loss Negative for: Headaches and Numbness SKIN: Positive for: Nail changes Negative for: Rash, Skin changes and Hair loss EYES: Positive for: Eye redness and Eye dryness Negative for: Eye pain and visual disturbance CARDIOVASCULAR: Negative for: Chest pain and Leg swelling GENITOURINARY: Negative for: Dysuria and Hematuria HEMATOLOGIC/LYMPHATIC : Negative for: Swollen glands No invasive dental work in the last three months and none planned for the future. no history of heart attack or stroke no history of cancer or radiation Osteoporosis History No history of fractures (Comment: no fragility fractures. had traumatic nasal fracture - ran into [facility]- around age 32) Daily Calcium diet: 978 mg Daily Calcium supplementation: 1300 mg (Comment: in divided doses) Daily Vitamin D: 2000 IU Current Multivitamin: Yes PAST MEDICAL HISTORY Osteoporosis Hypothyroid kidney stone PAST SURGICAL HISTORY: 2 cerclages kidney stone surgery twice cataract surgery oral surgery Family History: hyperparathyroidism- dad, 2 sisters hypothyroid- mom and sisters Allergies: Seasonal Allergies Medications: Present: Current Outpatient Medications Medication Sig levothyroxine (SYNTHROID) 50 mcg tablet potassium chloride ER (KLOR-CON) 20 mEq tablet romosozumab-aqqg (EVENITY SUBCUTANEOUS) triamterene-hydroCHLO ROthiazide (MAXZIDE) 75-50 mg per tablet Take 1 tablet by mouth once daily. TRIAMTERENE-HYDROCHLO ROTHIAZID ORAL No current facility-administered medications for this visit. Physical Exam: BP 114/62 Pulse 96 Temp 36.9 ?C (98.5 ?F) (Temporal) Ht 165.1 cm (5' 5 ) Wt 52 kg (114 lb 10.2 oz) BMI 19.08 kg/m? Last Ht 03/02/24 : 165.1 cm (5' 5 ) GEN: NAD, well groomed EYES: conjunctiva and sclera normal. EARS: External ears normal. NOSE/SINUS: Nares normal. Septum midline. Mucosa normal. No drainage or sinus tenderness. THROAT: Normal and no erythema. ORAL: unremarkable NECK: Neck supple, no adenopathy; no thyromegaly HEART: RRR, no murmurs LUNGS: Clear to auscultation. good respiratory effort LYMPH NODES: No cervical lymphadenopathy and no supraclavicular lymphadenopathy. ABDOMEN: Bowel sounds normoactive, no bruits; soft, nontender, without organomegaly or palpable masses. NEURO: Awake, alert and oriented x 3, cranial nerves II-XII sun (more content not included)... Normal [facility] Estimated glomerular filtrat ion rate (GFR) non- Americanon 05-25-2023 GFR/1.73 sq M.predicted among non-blacks MDRD (S/P/Bld) [Vol rate/Area] mL/min/{1.73_m2} >=60 [facility] Glucose mean value [Mass/vol ume] in Blood Estimated from glycated hemoglobinon 05-25-2023 Average glucose Estimated from glycated hemoglobin (Bld) [Mass/Vol] 117 mg/dL [facility] - Chemistry and C hemistry - challengeon 05-25-2023 Calcium [Mass/Vol] 9.6 mg/dL 8.5-10.1 [facility] Chloride [Moles/Vol] 101 mmol/L 98-107 [facility] CO2 [Moles/Vol] 30.8 mmol/L 21.0-32.0 [facility] Creatinine [Mass/Vol] 0.80 mg/dL 0.55-1.02 [facility] Free T4 [Mass/Vol] 1.21 ng/dL 0.76-1.46 [facility] GFR/1.73 sq M.predicted MDRD (S/P/Bld) [Vol rate/Area] mL/min/{1.73_m2} >=60 [facility] Glucose [Mass/Vol] 70 mg/dL Low 74-106 [facility] Potassium [Moles/Vol] 3.5 mmol/L 3.5-5.1 [facility] Sodium [Moles/Vol] 140 mmol/L 136-145 [facility] TSH Qn 1.172 m[IU]/L 0.358-3.740 [facility] Urea nitrogen [Mass/Vol] 13.0 mg/dL 7.0-18.0 [facility] Urea nitrogen/Creatinine [Mass ratio] 16.2 mg/mg [facility] - Hematology and Cell countson 05-25-2023 HbA1c (Bld) [Mass fraction] 5.7 % 4.5-6.2 [facility] Comment on above: ADA RECOMMENDED LIMI T 4.0 - 6.0ADA THERAPEUTIC TARGET < 7.0ACTION SUGGESTED> 7.0 Serum or plasma anion gap de terminationon 05-25-2023 Anion gap [Moles/Vol] 11.7 mmol/L [facility] Urinalysis - AUTOMATEDon Appearance (U) cloudy [facility] Other Bilirubin Ql (U) Negative AgreeYa Mobility - Onvelop Other Color (U) pale yellow H?REL Other Glucose Ql (U) Negative [facility] Other Hemoglobin Ql (U) trace-intact H?REL Other Ketones Ql (U) Negative [facility] Other Leukocyte esterase Test strip Ql (U) small H?REL Other Nitrite Ql (U) Negative [facility] Other pH (U) 7.0 [pH] H?REL Other Protein Ql (U) Negative [facility] Other Specific gravity (U) [Rel density] 1.020 H?REL Other Urobilinogen (U) [Mass/Vol] 0.2 mg/dL H?REL Other Urinalysis - AUTOMATED H?REL Other Urine Cultureon 01-29-2023 Urine Culture >100,000 H?REL Other Urine Culture <1 Susceptible [facility] Other Urine Culture <32 Susceptible [facility] Other Urine Culture <4 Susceptible [facility] Other Urine Culture <0.5/9.5 Susceptible [facility] Other Bacteria identified Cx Nom (U) Reason for Exam Dysuria Urine ORGANISM: Staphylococcus epidermidis (O:STAEPI) [place] Count >100,000 Aerobic DAJA Charge (PCMIC38) ---- SUSCEPTIBILITY --- ORGANISM: O:STAEPI ANTIBIOTIC INTERPRETATION DAJA Ciprofloxacin S <1 Daptomycin S <0.5 Levofloxacin S <1 Linezolid S <1 Nitrofurantoin S <32 Oxacillin R >2 Penicillin R >2 Tetracycline S <4 Trimethoprim/Sulfamet hoxazole S <0.5 Vancomycin S 1 S = [...] RESISTANT TO ALL B-LACTAM DRUGS. PERFORMED BY: [facility] [address] [place] [address] PATHOLOGIST AGENCY SALES REPRESENTATIVE ADELSO KAPADIA M.D. [facility] Comment on above: Performed By: #### C UU #### [facility] [address] PTH INTACTon 04-28-2022 PTH, Intact 31 pg/mL Normal 15-65 [facility] Comment on above: Performed By: #### P THINT #### [facility] [address] [address] [address] Breana Kong CALCIUMon 04-27-2022 Calcium [Mass/Vol] 9.4 mg/dL Normal 8.5-10.1 [facility] Comment on above: Performed By: #### T SH, [place] #### [facility] [address] [address] [address] Breana Kong FREE T4on 04-27-2022 Free T4 [Mass/Vol] 1.14 ng/dL Normal 0.76-1.46 [facility] Comment on above: Performed By: #### F T4 #### [facility] [address] [place] [address] Dr. Breana Kong MG MAMM SCREEN 3D TISH CADon 04-27-2022 MG MAMM SCREEN 3D TISH CAD Patient: ANA M WALTER Exam Date: 04/27/2022 : 1950 Gender:F Ordering : DR CHRISTY LOPEZ M.D. Admission #: [id number] Family : Order #: [id number] CLICK HERE TO VIEW EXAM RADIOLOGY REPORT [...] breast cancer at age 57. LOCATION: [facility] BREAST COMPOSITION: Extremely dense, which lowers the [...] Nam M.D. on 04/27/2022 at 16:02 Normal [facility] TSHon 04-27-2022 TSH 0.435 uIU/mL Normal 0.358-3.740 [facility] Comment on above: Performed By: #### T , [place] #### [facility] [address] [place] [address] Dr. Breana Kong Vital Signs Date Time Vital Sign Value Performing Clinician Facility 08-14-2024 14: Body height 165.1 cm Abrahan BUCKLEY Work Phone: [facility] 08-14-2024 14:11040 Body mass index (BMI) [Ratio] 18.3 kg/m2 Abrahan BUCKLEY Work Phone: [facility] 08-14-2024 14: Body weight 49.9 kg Abrahan BUCKLEY Work Phone: [facility] 05-28-2024 09:15-0400 Body height 166.37 cm [facility] 05-28-2024 09:15-0400 Body mass index (BMI) [Ratio] 18 kg/m2 [facility] 05-28-2024 09:15-0400 Body weight 49.89 kg [facility] 05-28-2024 09:15-0400 Diastolic blood pressure 65 mm[Hg] [facility] 05-28-2024 09:15-0400 Heart rate 80 /min [facility] 05-28-2024 09:15-0400 Systolic blood pressure 104 mm[Hg] [facility] 02-27-2024 09:41-0500 Body height 166.37 cm [facility] 02-27-2024 09:41-0500 Body mass index (BMI) [Ratio] 18.6 kg/m2 [facility] 02-27-2024 09:41-0500 Body weight 51.7 kg [facility] 02-27-2024 09:41-0500 Diastolic blood pressure 71 mm[Hg] [facility] 02-27-2024 09:41-0500 Heart rate 81 /min [facility] 02-27-2024 09:41-0500 Systolic blood pressure 105 mm[Hg] [facility] 06-02-2023 10:29-0400 Body height 166.37 cm [facility] 06-02-2023 10:29-0400 Body mass index (BMI) [Ratio] 18 kg/m2 [facility] 06-02-2023 10:29-0400 Body weight 49.89 kg [facility] 06-02-2023 10:29-0400 Diastolic blood pressure 64 mm[Hg] [facility] 06-02-2023 10:29-0400 Heart rate 97 /min [facility] 06-02-2023 10:29-0400 SaO2% (BldA) [Mass fraction] 100 % [facility] 06-02-2023 10:29-0400 Systolic blood pressure 108 mm[Hg] [facility] 05-11-2023 10:00-0400 Body height 166.37 cm [facility] 05-11-2023 10:00-0400 Body mass index (BMI) [Ratio] 17.9 kg/m2 [facility] 05-11-2023 10:00-0400 Body weight 49.49 kg [facility] 05-11-2023 10:00-0400 Diastolic blood pressure 60 mm[Hg] [facility] 05-11-2023 10:00-0400 Heart rate 89 /min [facility] 05-11-2023 10:00-0400 Systolic blood pressure 102 mm[Hg] [facility] 03-16-2023 13:00-0500 Body height Sapphire Ortez Other [employer] [facility] [employer] Other 03-16-2023 13:00-0500 Body mass index (BMI) [Ratio] 18.68 kg/m2 Sapphire Ortez Other H?REL Other 03-16-2023 13:00-0500 Body temperature 97.4 [degF] Sapphire Ortez Other [facility]REL Other 03-16-2023 13:00-0500 Body weight 51.71 kg Sapphire Ortez Other H?REL Other 03-16-2023 13:00-0500 Diastolic blood pressure 64 mm[Hg] Sapphire Ortez Other [facility] Other 03-16-2023 13:00-0500 SaO2% (BldA) [Mass fraction] 100 % Sapphire Ortez Other [facility] Other 03-16-2023 13:00-0500 Systolic blood pressure 112 mm[Hg] Sapphire Ortez Other [facility] Other 01-29-2023 10:50-0500 Body height Ludy Mccartymond Other [facility] Other 01-29-2023 10:50-0500 Body mass index (BMI) [Ratio] 18.35 kg/m2 Ludy Cristina Other [facility] Other 01-29-2023 10:50-0500 Body temperature 98 [degF] Ludy Cristina Other [facility] Other 01-29-2023 10:50-0500 Body weight 50.8 kg Ludy Cristina Other [facility] Other 01-29-2023 10:50-0500 Diastolic blood pressure 56 mm[Hg] Ludy Cristina Other [facility] Other 01-29-2023 10:50-0500 Respiratory rate 18 /min Ludy Cristina Other [facility] Other 01-29-2023 10:50-0500 SaO2% (BldA) [Mass fraction] 97 % Ludy Cristina Other [facility] Other 01-29-2023 10:50-0500 Systolic blood pressure 110 mm[Hg] Ludy Cristina Other [facility] Other 06-24-2021 16:15-0400 Body height Brandin Bah Other [facility] Other 06-24-2021 16:15-0400 Body mass index (BMI) [Ratio] 18.19 kg/m2 Brandin Bah Other [facility] Other 06-24-2021 16:15-0400 Body weight 50.35 kg Brandin Bah Other [facility] Other 06-24-2021 16:15-0400 Diastolic blood pressure 60 mm[Hg] Brandin Bah Other [facility] Other 06-24-2021 16:15-0400 Systolic blood pressure 116 mm[Hg] Brandin Bah Other H?REL Other Encounters Encounter Date Encounter Type Care Provider Facility Start: 08-16-2024 End: 08-16-2024 Telephone encounter April Yadav MD Work Phone: Rheumatology Comment on above: Patient Question Start: 08-14-2024 End: 08-14-2024 Office outpatient new 30 minutes Abrahan BUCKLEY Work Phone: [facility] Comment on above: Acute hip pain, left (Primary Dx); Chronic left SI joint pain Start: 08-14-2024 End: 08-14-2024 Bamboo flowsheet Abrahan BUCKLEY Work Phone: [facility] Start: 08-14-2024 End: 08-14-2024 Bamboo flowsheet Abrahan BUCKLEY Work Phone: [facility] Start: 05-28-2024 End: 05-28-2024 ambulatory [facility] Work Phone: Start: 05-28-2024 End: 05-28-2024 Patient encounter procedure [facility] Work Phone: Start: 05-21-2024 End: 05-21-2024 Telephone encounter April Yadav MD Work Phone: Rheumatology Comment on above: Results Patient Update Start: 03-15-2024 End: 03-15-2024 Telephone encounter April A File Work Phone: Rheumatology Comment on above: Received Outside Med ical Records (Bone Density of 05/25/2023) Start: 03-15-2024 End: 03-15-2024 ambulatory APRIL A FILE Facility:[facility] Start: 03-12-2024 End: 03-12-2024 Telephone encounter April Kaba File Work Phone: Rheumatology Comment on above: Received Outside Med ical Records ([facility] Start: 03-02-2024 End: 03-02-2024 ambulatory APRIL A FILE Facility:[facility] Start: 02-27-2024 End: 02-27-2024 ambulatory [facility] Work Phone: Start: 02-27-2024 End: 02-27-2024 Patient encounter procedure [facility] Work Phone: Start: 08-04-2023 End: 08-04-2023 ambulatory [facility] Work Phone: Start: 08-04-2023 End: 08-04-2023 Patient encounter procedure [facility] Work Phone: Start: 06-06-2023 Non-patient / Non-visit [facility] Work Phone: Start: 06-02-2023 End: 06-02-2023 ambulatory [facility] Work Phone: Start: 06-02-2023 End: 06-02-2023 Patient encounter procedure [facility] Work Phone: Start: 05-25-2023 Non-patient / Non-visit [facility] Work Phone: Start: 05-11-2023 End: 05-11-2023 ambulatory [facility] Work Phone: Start: 05-11-2023 End: 05-11-2023 Patient encounter procedure [facility] Work Phone: Start: 03-16-2023 End: 03-16-2023 ambulatory Sapphire Ortez Other H[facility]REL Other Start: 03-16-2023 Encounter by corry Ortez [facility] Start: 03-16-2023 Office outpatient vi sit 15 minutes Sapphire Ortez [facility] Start: 01-29-2023 Office outpatient vi sit 15 minutes Ludy Evans [facility] Start: 01-29-2023 End: 01-29-2023 ambulatory Ludy Evans Facility:[facility] Start: 01-29-2023 End: 01-29-2023 ambulatory LONG LINES OPERATOR-C Ludy Evans Work Phone: [facility] Work Phone: Start: 01-29-2023 End: 01-29-2023 Departed Referred LONG LINES OPERATOR-C Ludy Evans Work Phone: [facility] [place] Work Phone: Start: 12-06-2022 End: 12-06-2022 ambulatory Christy Lopez Other H[facility] Other Start: 12-06-2022 Telephone encounter Christy Lopez [facility] Start: 04-28-2022 End: 04-28-2022 ambulatory Christy Lopez Other H?REL Other Start: 04-28-2022 Telephone encounter Christy Lopez [facility] Start: 04-27-2022 End: 04-28-[address] CHRISTY LOPEZ Facility: Start: 03-25-2022 (Televisit) Televisit Christy Tsang [facility] Start: 03-25-2022 End: 03-25-2022 ambulatory Christy Lopez Other H?REL Other Start: 06-24-2021 End: 06-24-2021 ambulatory Brandin Bah Other H?REL Other Start: 06-24-2021 Office outpatient ne w 45 minutes Brandin Bah [facility] Start: 06-11-2021 End: 06-11-2021 ambulatory BIDNU MCQUEEN Facility:[facility] Start: 05-14-2021 End: 05-14-2021 ambulatory BINDU MCQUEEN Facility:[facility] Start: 01-29-2021 Adult health examination Christy Lopez Other H?REL Other Procedures Date Procedure Procedure Detail Performing Clinician Start: 08-14-2024 Radex hip unilateral with pelvis 2-3 views Abrahan BUCKLEY Work Phone: Screening for malign ant neoplasm of breast Christy Lopez Other Viral screening Christy Lopez Other Plan of Treatment Date Care Activity Detail Author Start: 06-14-2027 RSV Vaccine (1 - 1-d ose 75+ series) RSV Vaccine (1 - 1-dose 75+ series) [facility] Start: 03-15-2027 Diabetes Screening Diabetes Screenin g [facility] Start: 10-08-2024 Influenza vaccination Influenza Vacc ine (#1) [facility] Start: 10-01-2024 End: 10-01-2024 Patient encounter procedure 10/01/2024 3:00 PM EDT Office Visit [facility] [address] [place] [address] Abrahan Moffett PA [address] [place] [address] [facility] Start: 08-30-2024 End: 08-30-2024 ambulatory 08/30/2024 10:40 AM EDT [facility] [address] [address] April Yadav MD [address] [place] [address] Osteoporosis vv f/u [facility] Comment on above: Osteoporosis vv f/u Start: 08-14-2024 End: 08-14-2024 Patient encounter procedure 08/14/2024 2:15 PM EDT Office Visit [facility] [address] [place] [id number] Abrahan Moffett, PA [address] [place] [address] Acute hip pain, left (Primary Dx) [facility] Comment on above: Acute hip pain, left (Primary Dx) Start: 05-28-2024 Patient referral [facility] Work Phone: Start: 03-15-2024 End: 03-15-2024 ambulatory 03/15/2024 11:00 AM EST Results Only [facility] [address] [place] [address] [facility] Start: 02-08-2024 Advance Directive Discussion Advance Directive Discussion [facility] Start: 02-08-2024 Medicare Advantage Annual Wellness Visit Medicare Advantage Annual Wellness Visit [facility] Start: 10-09-2023 Covid-19 Vaccine ( season) Covid-19 Vaccine ( season) [facility] Start: 10-09-2023 Influenza vaccination Influenza Vacc ine (#1) [facility] Start: 01-29-2023 Bacteria identified in Urine by Culture [facility] Start: 2017 Screening for osteoporosis Bone Density Screening [facility] Start: 2002 Pneumococcal Vaccine : 50+ (1 of 1 - PCV) Pneumococcal Vaccine: 50+ (1 of 1 - PCV) [facility] Start: 2002 Shingrix Vaccine (1 of 2) Shingrix Vaccine (1 of 2) [facility] Start: 1997 Diabetes Screening Diabetes Screenin g [facility] Start: 1997 Lipid panel Lipid Screening [facility] Start: 1997 Screening for malign ant neoplasm of colon [facility] Start: 1992 Screening for malign ant neoplasm of breast [facility] Start: 06-14-1971 Urine microalbumin profile DTaP,Tdap,Td Vaccine (1 - Tdap) [facility] Start: 1970 Anxiety Screening Anxiety Screening [facility] Start: 1970 Depression Screening Depression Scre ening [facility] Start: 1970 Hepatitis C screening Hepatitis C Sc juan francisco [facility] Start: 1952 Screening for malign ant neoplasm of colon [facility] DXA Skeletal system.axial Views for bone density [facility] MG Breast - bilatera l Screening [facility] Patient referral [facility] Work Phone: [facility] Immunizations Immunization Date Immunization Notes Care Provider [facility] 12-28-2023 influenza virus vaccine, unspecified formulation Abrahan BUCKLEY Work Phone: [facility] 11-11-2021 influenza virus vaccine, split virus (incl. purified surface antigen) Christy Lopez Other H?REL Other 11-11-2021 influenza virus vaccine, unspecified formulation [facility] 08-31-2021 COVID-19 Vaccine Pfizer - Documentation Purposes Only Christy Lopez Other [facility] 12-09-2020 COVID-19 Vaccine Pfizer - Documentation Purposes Only Christy Lopez Other [facility] 11-12-2020 influenza virus vaccine, split virus (incl. purified surface antigen) Christy Lopez Other [facility] Other 11-12-2020 influenza virus vaccine, unspecified formulation [facility] 11-26-2019 influenza virus vaccine, split virus (incl. purified surface antigen) Christy Lopez Other H?REL Other 11-26-2019 influenza virus vaccine, unspecified formulation [facility] 04-11-2017 tetanus and diphtheria toxoids, adsorbed, preservative free, for adult use (5 Lf of tetanus toxoid and 2 Lf of diphtheria toxoid) Christy Lopez Other [facility] 01-19-2017 tetanus and diphtheria toxoids, adsorbed, preservative free, for adult use (5 Lf of tetanus toxoid and 2 Lf of diphtheria toxoid) Christy Lopez Other [facility] 12-30-2015 tetanus and diphtheria toxoids, adsorbed, preservative free, for adult use (5 Lf of tetanus toxoid and 2 Lf of diphtheria toxoid) Christy Lopez Other [facility] NEGATED: Highlighted row has not occurred!08-27-2015 influenza virus vaccine, unspecified formulation [facility] NEGATED: Highlighted row has not occurred!08-27-2015 influenza, injectable,quadriva lent, preservative free, pediatric Patient Objection Brandin Bah Other H?REL Other Payers Date Payer Category Payer Medicare AETNA MEDICARE A ETNA MEDICARE PPO [id number] 2023-Present [phone] [address] [place] [address] [facility] [id number] 2023 Medicare (Managed Care) AETNA MD DICARE [id number] 2023 Self-pay [id number] 2021 Medicaid AETNA MEDICARE A DVANTAGE [id number] 1959 Medicare [id number] 1950 Unknown [id number] 1950 Unknown [id number] 1950 Unknown [id number] Medicare Medicare [id number] Unknown [id number] Social History Date Type Detail Facility Unknown if ever smoked H?[facility] Other Start: 03-02-2024 End: 03-03-2024 Sex Assigned At [facility] Start: 1950 Sex Assigned At Female [facility] Start: 05-04-2023 End: 03-02-2024 Tobacco smoking status NHIS Never smoked tobacco (finding) [facility] Start: 02-27-2024 End: 05-28-2024 Sex Female (finding) [facility] Start: 03-02-2024 End: 08-14-2024 Tobacco use and exposure Smokeless tobacco non-user [facility] Start: 03-02-2024 End: 03-03-2024 History of Social function [facility] Adult Depression Screening Assessment 0 [facility] Start: 03-10-2024 Gender identity Identifies as female gender (finding) [facility] Start: 03-10-2024 Sexual orientation Heterosexual (finding) [facility] Tobacco smoking stat us NHIS Tobacco smoking consumption unknown [facility] Start: 1950 Sex assigned at Not on file [facility] Start: 08-14-2024 Alcoholic beverage intake Ex-drinker (finding) [facility] Clinical Notes 05-14-2021 to 08-16-2024 Telephone Encounter - Jazzy Celestin RN - 08/16/2024 4:42 PM EDTTelephone Encounter - Jazzy Celestin RN - 08/16/2024 4:42 PM EDTMINA Catalan - 08/14/2024 2:15 PM EDT Note Date & Type Note Facility 08-16-2024 Telephone encounter Note Spoke with patient on the phone. Patient notified that she may complete blood work prior to receiving Evenity injection. Patient states understanding and thanked RN for the call. [facility] 08-16-2024 Miscellaneous Notes Spoke with patient on the phone. Patient notified that she may complete blood work prior to receiving Evenity injection. Patient states understanding and thanked RN for the call. yes- she can complete her labs before her evenity tomorrow. Patient has her last dose of Evenity tomorrow at 9 AM. She wanted to get the blood work completed before. She wants to know if that's ok? Or should she go back and get it done after the last dose. Please call patient at documented in this encounter [facility] 08-16-2024 Telephone encounter Note yes- she can complete her labs before her evenity tomorrow. [facility] 08-16-2024 Telephone encounter Note Patient has her last dose of Evenity tomorrow at 9 AM. She wanted to get the blood work completed before. She wants to know if that's ok? Or should she go back and get it done after the last dose. Please call patient at [facility] 08-14-2024 History of Presen t illness Narrative Images from the original note were not included. Orthopedic Office note: NAME: Ana M Walter : 1950 (NEW PT) LT HIP PAIN [...] Consult and Treat Referred to Provider: Brandin Bah MD Requested Specialty: Pain Medicine Number of [...] requiring urgent evaluation. Visit was preformed using [employer] Co-public relations account supervisor speech recognition. documented in this encounter [facility] 05-21-2024 Telephone encounter Note Spoke with patient on the phone. Patient made aware that the PA for Evenity would have to come from the provider who is administering the medication. Patient stated that she will contact outside provider. Patient states understanding. All questions answered. [facility] 05-21-2024 Miscellaneous Notes Spoke with patient on the phone. Patient made aware that the PA for Evenity would have to come from the provider who is administering the medication. Patient stated that she will contact outside provider. Patient states understanding. All questions answered. I am confused by this. I can only write the order for evenity and do the prior auth for this if she is getting here at [facility] through [place]. Otherwise she needs to get the prior auth from the doctor who is writing the order for her to receive it in [place]. please let her know this. ----- Message from Jazzy Browning RN sent at 05/21/2024 1:59 PM EDT ----- Regarding: PA for Evenity Injections ----- Message ----- From: Carol Alva Sent: 05/21/2024 12:53 PM EDT To: [facility] Main Injection Pool Patient called and LVM. She is getting her Evenity injections in [place]. Requesting a prior auth for their location from Dr. Yadav. Can return patient call to [phone] for more info. documented in this encounter [facility] 05-21-2024 Telephone encounter Note I am confused by this. I can only write the order for evenity and do the prior auth for this if she is getting here at [facility] through me. Otherwise she needs to get the prior auth from the doctor who is writing the order for her to receive it in [place]. please let her know this. [facility] 05-21-2024 Telephone encounter Note ----- Message from Jazzy Browning RN sent at 05/21/2024 1:59 PM EDT ----- Regarding: PA for Evenity Injections ----- Message ----- From: Carol Alva Sent: 05/21/2024 12:53 PM EDT To: [facility] Main Injection Pool Patient called and LVM. She is getting her Evenity injections in [place]. Requesting a prior auth for their location from Dr. Yadav. Can return patient call to [phone] for more info. [facility] 05-21-2024 Telephone encounter Note Faxed 03/15/24 lab results to pt's [facility] Dr. Bernie Lopez at [phone] per pt's request. Received confirmation. [facility] 05-21-2024 Miscellaneous Notes Faxed 03/15/24 lab results to pt's [facility] Dr. Bernie Lopez at [phone] per pt's request. Received confirmation. documented in this encounter [facility] 03-15-2024 Telephone encounter Note the report mentions trochanter bmd, which is not used for diagnosis of osteoporosis. need to see images. [facility] 03-15-2024 Miscellaneous Notes the report mentions trochanter bmd, which is not used for diagnosis of osteoporosis. need to see images. Received Bone Density of 05/25/2023 from [facility]. Scanned into chart for review. Scan on 03/15/2024 10:09 AM by ProviderFrankie PA-C: Bone Density documented in this encounter [facility] 03-15-2024 Telephone encounter Note Received Bone Density of 05/25/2023 from [facility]. Scanned into chart for review. Scan on 03/15/2024 10:09 AM by ProviderFrankie PA-C: Bone Density [facility] 03-12-2024 Telephone encounter Note Received outside medical records from [facility] Physician [facility]. Scanned into chart for review. [facility] 03-12-2024 Miscellaneous Notes Received outside medical records from [facility]. Scanned into chart for review. documented in this encounter [facility] 03-02-2024 Note HNO ID: [id number] Author: APRIL YADAV MD Service: ? Author Type: Physician Type: Progress Notes Filed: 03/03/2024 08:38 Note Text: The patient is seen in consultation at the request of self for an opinion and advise regarding the management of the patient?s osteoporosis. OSTEOPOROSIS AND METABOLIC BONE DISEASE HISTORY and PHYSICAL Gender: female Ethnicity: White Age: [age] year old Chief Complaint: Evaluation for osteoporosis TREATMENTS: Current Anabolic Medications Bone Formation Agents - Sclerostin Inhibitor, Monoclonal Antibody Start End romosozumab-aqqg (EVENITY SUBCUTANEOUS) 09/30/2023 -- Class: Historical Med Osteoporosis - Antiresorptive Treatments Treatment Start Date Stop Date Stop Reason Comment ibandronate 08/2023 was told she had decline in bmd on this and was changed to evenity fosamax 2009 2009 just for 4 months caused GI upset- then was on ibandronate for 1 year after this, then off Osteoporosis - Anabolic Treatments Treatment Start Date Stop Date Stop Reason Comment evenity 09/2023 Osteoporosis FRAX Risk Factors No Fractures (Comment: no fragility fractures. had traumatic nasal fracture - ran into [facility]- around age 32) Family History of osteoporosis mother, sister No parent with a hip fracture Not a current smoker no significant glucocorticoid use No rheumatoid arthritis No secondary osteoporosis No alcohol use more than 3 units per day Osteoporosis Medication Risk Factors No use of Anti-convulsants No use of Furosemide Osteoporosis Disease-Specific Risk Factors Weight < 127 lbs Height loss 1/2 inch since age 42 normal balance Fall history Renal calculi (Comment: over 10 yrs ago) No CKD Caffeine intake: none Exercise routine: (Comment: hikes and rides bikes) Review of Systems CONSTITUTION: Negative for: Fever and Recent weight change HEENT: Positive for: Nosebleeds Negative for: Mouth sores, Trouble swallowing and Dry mouth RESPIRATORY: Negative for: Cough, Shortness of breath and Pain with breathing GASTROINTESTINAL: Negative for: Melena, Diarrhea, Heartburn and Abdominal pain MUSCULOSKELETAL: Positive for: Arthralgias, Myalgias and Morning Joint Stiffness Negative for: Muscle weakness and Joint swelling NEUROLOGICAL: Positive for: Memory loss Negative for: Headaches and Numbness SKIN: Positive for: Nail changes Negative for: Rash, Skin changes and Hair loss EYES: Positive for: Eye redness and Eye dryness Negative for: Eye pain and visual disturbance CARDIOVASCULAR: Negative for: Chest pain and Leg swelling GENITOURINARY: Negative for: Dysuria and Hematuria HEMATOLOGIC/LYMPHATIC: Negative for: Swollen glands No invasive dental work in the last three months and none planned for the future. no history of heart attack or stroke no history of cancer or radiation Osteoporosis History No history of fractures (Comment: no fragility fractures. had traumatic nasal fracture - ran into [facility]- around age 32) Daily Calcium diet: 978 mg Daily Calcium supplementation: 1300 mg (Comment: in divided doses) Daily Vitamin D: 2000 IU Current Multivitamin: Yes PAST MEDICAL HISTORY Osteoporosis Hypothyroid kidney stone PAST SURGICAL HISTORY: 2 cerclages kidney stone surgery twice cataract surgery oral surgery Family History: hyperparathyroidism- dad, 2 sisters hypothyroid- mom and sisters Allergies: Seasonal Allergies Medications: Present: Current Outpatient Medications Medication Sig levothyroxine (SYNTHROID) 50 mcg tablet potassium chloride ER (KLOR-CON) 20 mEq tablet romosozumab-aqqg (EVENITY SUBCUTANEOUS) triamterene-hydroCHLOROthiazide (MAXZIDE) 75-50 mg per tablet Take 1 tablet by mouth once daily. TRIAMTERENE-HYDROCHLOROTHIAZID ORAL No current facility-administered medications for this visit. Physical Exam: BP 114/62 Pulse 96 Temp 36.9 ?C (98.5 ?F) (Temporal) Ht 165.1 cm (5' 5 ) Wt 52 kg (114 lb 10.2 oz) BMI 19.08 kg/m? Last Ht 03/02/24 : 165.1 cm (5' 5 ) GEN: NAD, well groomed EYES: conjunctiva and sclera normal. EARS: External ears normal. NOSE/SINUS: Nares normal. Septum midline. Mucosa normal. No drainage or sinus tenderness. THROAT: Normal and no erythema. ORAL: unremarkable NECK: Neck supple, no adenopathy; no thyromegaly HEART: RRR, no murmurs LUNGS: Clear to auscultation. good respiratory effort LYMPH NODES: No cervical lymphadenopathy and no supraclavicular lymphadenopathy. ABDOMEN: Bowel sounds normoactive, no bruits; soft, nontender, without organomegaly or palpable masses. NEURO: Awake, alert and oriented x 3, cranial nerves II-XII grossly intact, reflexes symmetrical, normal gait and no involuntary motions. SKIN: Skin color, texture, turgor normal. No rash. Examination of Back: Profile -Dorsal kyphosis TS: No -Scoliosis: No No point tenderness to palpitation of spine Balance: -Romberg test: Normal -Heel/carmona (more content not included)... [facility] 03-16-2023 Evaluation note Encounter Date Diagnosis Assessment [...] verbalized understanding and agreement with treatment plan. [facility] Other 12-23-2023 Evaluation note* Encounter Date Diagnosis [...] - Z86.19) Jul, Dysuria (ICD-10 - R30.0) [facility] Other 02-16-2023 Evaluation note* Encounter Date Diagnosis [...] PTH due to history of elevated calcium [facility] Other 05-18-2022 Evaluation note* Encounter Date Diagnosis [...] negative findings were considered in medical decision-making. [facility] Other 05-05-2022 NoteOPERATIVE NOTE OPERATION DATE: 06/11/2021 SURGEON: Bindu [...] ensuring mobility, phacoemulsification was performed in a chrwmxd-udw-eekpny-type fashion. After all nuclear material had been [...] up the following day for postoperative care. [facility] Signed and Approved by: BINDU MCQUEEN 07/10/2021 15:27:00[facility]05-05-2022 NoteHISTORY AND PHYSICAL EXAMINATION HISTORY: Patient is [...] and go forward with her elective procedure. [facility] Signed and Approved by: BINDU MCQUEEN 06/12/2021 12:13:00[facility]04-07-2022 NoteOPERATIVE NOTE PREOPERATIVE HISTORY AND PHYSICAL HISTORY: [...] and go forward with her elective procedure. [facility] Signed and Approved by: BINDU MCQUEEN 05/29/2021 14:18:00[facility]04-07-2022 NoteOPERATIVE NOTE SURGEON: Bindu Mcqueen D.O. PREOPERATIVE [...] ensuring mobility, phacoemulsification was performed in a jlhlyct-cjz-bvcluw-type fashion. After all nuclear material had been [...] up the following day for postoperative care. [facility] Signed and Approved by: BINDU MCQUEEN 05/29/2021 14:18:00[facility] noteNo InformationNort [email or web address] Other Evaluation noteNo assessment information available [facility] Work Phone: Evaluation note* Diagnosis Onset Date Resolution Status Hypothyroidism acute Medicare annual wellness visit, subsequent acute Osteoporosis acute Screening mammogram, encounter for acute [facility] Work Phone: Evaluation note* Diagnosis Onset Date Resolution Status Hypercalcemia acute Hypothyroidism acute Medicare annual wellness visit, subsequent acute Osteoporosis acute Screening mammogram, encounter for acute Maxillary sinusitis acute [facility] Work Phone: Evaluation note* Diagnosis Onset Date Resolution Status Hypercalcemia acute Hypothyroidism acute Medicare annual wellness visit, subsequent acute Osteoporosis acute Screening mammogram, encounter for acute Maxillary sinusitis acute Osteoporosis acute [facility] Work Phone: Evaluation note* Diagnosis Onset Date Resolution Status Admit Date IBS (irritable bowel syndrome) acute May 28, 2024 9:11am [facility] Work Phone: Evaluation note* Diagnosis Acute hip pain, left- Primary Chronic left SI joint pain Disorders of sacrum documented in this [facility] - [facility]* Type Description Date Medical History Hypothyroidism Surgical History Colonoscopy 2010 Surgical History kidney stones Surgical History Lipoma Excision Surgical History Kidney Stones Cystoscopy Surgical History 2 cervical circlages Hospitalization History see above H?REL Other History general Narrative - Reported* Type Description Date Medical History Hypothyroidism Medical History Osteopenia after menopause Medical History Osteopenia Medical History Hypercalcemia Medical History Hypothyroidism (acquired) Surgical History Colonoscopy 2010 Surgical History kidney stones Surgical History Lipoma Excision Surgical History Kidney Stones Cystoscopy Surgical History 2 cervical circlages Hospitalization History see above H?REL Other Hospital Discharge instructionsAmbulatory Orders* Referral to Gastroenterology Time Frame: 05/28/24, Location: None Selected [facility] Work Phone: Summary Purpose Family History Relationship Condition Age [...] Screening mammogram, encounter for Maxillary sinusitis Osteoporosis Chief Complaint Admit Date Dizziness at Night February 27, 2024 9 :34am Chief Complaint Admit Date discuss results May 28, 2024 9:1 1am Reason for Visit Admit Date IBS (irritable bowel syndrome) May 9:11am Additional Source Comments REASON FOR VISIT (unrecogniz ed section and content) Reason Comments Received Outside Medical Records [facility]. Reason Comments Received Outside Medical Records Bone De nsity of 05/25/2023 Reason Comments Results Reason Comments Patient Update Reason Comments Pain Reason Comments Patient Question INFORMATION SOURCE (unrecogn ized section and content) DATE CREATED AUTHOR 05/02/2022 [facility] DATE CREATED AUTHOR AUTHOR'S ORGANIZ ATION 02/02/2023 [facility] DATE CREATED AUTHOR AUTHOR'S ORGANIZ ATION 05/21/2024 [facility] Care Teams (unrecognized sec tion and content) Team Status: Inactive Member Role Status Dates RUDI MonsivaisC Attending Provider Active Team Status: Active Member Role Status Dates Christy Loepz MD Primary Care Provider Active Team Status: [...] End: June 02, 2023 Sapphire Ortez APRN NP-C Attending Provider Act joseph Start: June 02, 2023 End: June 02, 2023 Team Status: Active Member Role Status Dates Christy Lopez MD Primary Care Provider Active Start: June 06, 2023 VAMSI Ceballos Attending Provider Active Start : June 06, 2023 Team Status: Inactive Member Role Status Dates Christy Lopez MD Primary Care Provider Active Start: August 04, 2023 End: August 04, 2023 Sapphire Aiken NP-C Attending Provider Active Start: August 04, 2023 End: August 04, 2023 Team Status: Inactive Member Role Status Dates Christy Lopez MD Primary Care Provide r, Attending Provider Active Start: February 27, 2024 End: February 27, 2024 Team Status: Inactive Member Role Status Dates Christy Lopez MD Primary Care Provide r, Attending Provider Active Start: May 28, 2024 End: May 28, 2024 [employer] Relationship Specialty Start Date End Date Christy Lopez MD [address] [place] [id number] PCP - General Family Medicine 08/14/24 [employer] Relationship Specialty Start Date End Date Christy Lopez MD [address] [place] [address] PCP - General Family Medicine 08/14/24 Goals (unrecognized section and content) Goals may be documented in a n alternate section Source Comments (unrecognize d section and content) In the event this informatio n is protected by the Federal Confidentiality of Alcohol and Drug Abuse Patient Records regulations: The Federal rules restrict any use of the information to criminally investigate or prosecute any alcohol or drug abuse patient.[facility] the event this information is protected by the Federal Confidentiality of Alcohol and Drug Abuse Patient Records regulations: The Federal rules restrict any use of the information to criminally investigate or prosecute any alcohol or drug abuse patient.[facility] the event this information is protected by the Federal Confidentiality of Alcohol and Drug Abuse Patient Records regulations: The Federal rules restrict any use of the information to criminally investigate or prosecute any alcohol or drug abuse patient.[facility] the event this information is protected by the Federal Confidentiality of Alcohol and Drug Abuse Patient Records regulations: The Federal rules restrict any use of the information to criminally investigate or prosecute any alcohol or drug abuse patient.[facility] the event this information is protected by the Federal Confidentiality of Alcohol and Drug Abuse Patient Records regulations: The Federal rules restrict any use of the information to criminally investigate or prosecute any alcohol or drug abuse patient.[facility] FOR RECORDS PERTAINING TO PATIENTS WHO ARE [...] BE BASED ON THE PRIMARY CLINICAL RECORDS. [facility] provides no warranty or guarantee of the accuracy or completeness of information in this document.
== END 2024-08-17 10:40 | disposition home or self-care (01) ==
LOC: LAB 10:40
PROVIDERS: PCP Family Medicine
DX: M81.0 Age-related osteoporosis without current pathological fracture (principal); Z79.899 Other long term (current) drug therapy
CPT/HCPCS: 36415; 82306; 82310; 82565